=== PATIENT | male | born 1950 | race Caucasian/White ===

== ENCOUNTER → 2024-05-22 10:55 | Outpatient (BNVA) | payer MEDICARE, OTHER, SELFPAY | PROVIDERS: PCP Nurse Practitioner Family; Referring Provider Psychiatry & Neurology Neurology; Visit Provider Internal Medicine Cardiovascular Disease | DX: R07.9 Chest pain, unspecified (principal); I49.8 Other specified cardiac arrhythmias | CPT/HCPCS: 93005; 99204 ==

== ENCOUNTER 2024-05-27 07:40 | Outpatient (CLI) | payer MEDICARE, OTHER, SELFPAY ==
--- NOTE | 2024-05-27 08:00 | CTR_ITS ---
PROCEDURE INFORMATION: Exam: CTA Head Without And With Contrast, Arteriography Exam date and time: 05/27/2024 8:41 AM Age: 73 years old Clinical indication: Convulsions / seizures; Patient HX: Neck cramping and headaches, altered awareness since feb 2023. HX of colon cancer; Additional info: R56.9 - unspecified convulsions TECHNIQUE: Imaging protocol: Computed tomographic angiography of the head without and with contrast. Exam focused on the arteries. 3D rendering (Not supervised by radiologist): MIP and/or 3D reconstructed images were created by the technologist. Radiation optimization: All CT scans at this facility use at least one of these dose optimization techniques: automated exposure control; mA and/or kV adjustment per patient size (includes targeted exams where dose is matched to clinical indication); or iterative reconstruction. Contrast material: OMNI 350; Contrast volume: 100 ml; Contrast route: INTRAVENOUS (IV); COMPARISON: No relevant prior studies available. RADIATION DOSE METRICS: Total DLP (mGy-cm): 1289.83 FINDINGS: Unenhanced images through the brain demonstrate no acute intracranial hemorrhage or localized mass effect. No subdural collections are seen. No obvious pathologic intracranial enhancement. Internal carotid: Bilateral carotid siphon atherosclerotic calcifications without evidence of severe stenosis. Anterior cerebral: Proximal anterior cerebral arteries bilaterally are patent without evidence of flow-limiting stenosis. There is a patent anterior communicating artery. Middle cerebral: Bilateral proximal middle cerebral arteries are patent without flow-limiting stenosis or occlusion. There is grossly symmetric appearance of branch vessels within the sylvian fissures. Posterior cerebral: Bilateral proximal posterior cerebral arteries are patent without flow-limiting stenosis or occlusion. . Vertebrobasilar: Basilar artery is patent without flow-limiting stenosis. Intracranial segments of both vertebral arteries are patent without flow-limiting stenosis. Venous sinuses: Major dural venous sinuses are patent without evidence of thrombus. PROCEDURE INFORMATION: Exam: CTA Neck With Contrast Exam date and time: 05/27/2024 8:41 AM Age: 73 years old Clinical indication: Convulsions / seizures; Patient HX: Neck cramping and headaches, altered awareness since feb 2023. HX of colon cancer; Additional info: R56.9 - unspecified convulsions TECHNIQUE: Imaging protocol: Computed tomographic angiography of the neck with contrast. Exam focused on the cervical segments of the vasculature. 3D rendering (Not supervised by radiologist): MIP and/or 3D reconstructed images were created by the technologist. Radiation optimization: All CT scans at this facility use at least one of these dose optimization techniques: automated exposure control; mA and/or kV adjustment per patient size (includes targeted exams where dose is matched to clinical indication); or iterative reconstruction. Contrast material: OMNI 350; Contrast volume: 100 ml; Contrast route: INTRAVENOUS (IV); COMPARISON: No relevant prior studies available. RADIATION DOSE METRICS: Total DLP (mGy-cm): 1289.83 FINDINGS: Aortic arch: No significant stenosis of the great vessels at their origins from the aortic arch. Right carotid: Right CCA is normal caliber. At the origin of the right ICA, there is calcified plaque producing less than 50% stenosis. Just distal to the calcified plaque, there is noncalcified plaque producing short-segment 50% stenosis. Left carotid: Left common, internal, and external carotid arteries in the neck are patent without flow-limiting stenosis or evidence of dissection. Mild atherosclerosis associated with less than 50% stenoses of the left CCA and left ICA. Left vertebral: Left vertebral artery is patent without flow-limiting stenosis or dissection. Right vertebral: Right vertebral artery is patent without evidence of flow-limiting stenosis or dissection. There is [id number] stenosis near the origin of the right vertebral artery. Soft tissues: No acute abnormality of the neck soft tissues is seen. Images through the upper chest show evidence of chronic lung disease. Bones/joints: Chronic multilevel cervical degenerative disc disease and facet DJD. There is minimal degenerative anterolisthesis at the C3-C4, C4-C5, and C5-C6 levels CT/CT angio headneck* [id number] IMPRESSION: 1. No acute intracranial hemorrhage or mass effect identified. 2. CTA head demonstrates no intracranial large vessel occlusion or flow-limiting stenosis. IMPRESSION: CTA neck shows relatively mild atherosclerotic disease with no occlusion or severe stenosis of the extracranial cerebrovascular circulation. REFERENCES: NASCET CRITERIA. The degree of stenosis in the cervical segment of the internal carotid artery is based on NASCET criteria. Normal is no stenosis. Mild is less than 50% stenosis. Moderate is 50-69% stenosis. Severe is 70% to 99% stenosis. Total occlusion is no detectable patent lumen.
[2024-05-27 08:39] LABS: Blood Urea Nitrogen 10 mg/dL (8-23)
[2024-05-27] MEDS: iohexol 350 mg/mL 500 mL Btl (per mL) IV (08:59)
== END 2024-05-27 07:41 | disposition home or self-care (01) ==
PROVIDERS: PCP Family Medicine; Visit Provider Psychiatry & Neurology Neurology
DX: R56.9 Unspecified convulsions (principal); M50.20 Other cervical disc displacement, unspecified cervical region; Z85.038 Personal history of other malignant neoplasm of large intestine
CPT/HCPCS: 70496; 70498; 82565; 84520

== ENCOUNTER 2024-05-30 12:51 | Outpatient (CLI) | payer MEDICARE, OTHER, SELFPAY ==
--- NOTE | 2024-05-30 13:30 | USCV_ITS ---
Kalin Alberto Age: 73 Gender: M : 1950 Exam Date: 05/30/2024 13:22 Ordering Phys: Emelyn Aggarwal MD ([email or web address]) Technologist: TESS Exam Location: [facility] [place] Indication: TIA Risk Factors: Previous Vascular Surgery: Right Brachial BP: / Left Brachial BP: / Right Left Velocity (cm/s) Spectral Plaque Velocity (cm/s) Spectral Plaque Syst/Diast Broadening Syst/Diast Broadening 93.20/ 13.80 Prox CCA 129.40/ 20.40 95.00/ 19.20 Mid CCA 106.20/ 23.00 110.10/21.00 Distal CCA 87.50 / 20.20 74.10/ 14.20 Prox ICA 77.00 / 15.60 127.40/32.70 Mid ICA 82.90 / 19.60 92.40/ 16.80 Distal ICA 90.80 / 25.50 87.80 ECA 140.20 1.20 ICA/CCA 1.00 Antegrade Vertebral Antegrade 75.40/ 16.80 cm/s 96.20/ 20.70 cm/s Tri Subclavian Tri 87.10 147.6 0 FINDINGS Comparison: none available. No significant elevation of systolic or diastolic velocities. Waveforms are normal. Mild diffuse calcified plaque in the bifurcations. Antegrade vertebral arteries. CONCLUSIONS Bilateral ICA stenosis less than 50%. Dr. Rani Phillips DO (Electronically Signed) Final Date: 30 May 2024 14:50 S
== END 2024-05-30 12:52 | disposition home or self-care (01) ==
LOC: RAD 12:52
PROVIDERS: PCP Family Medicine; Visit Provider Internal Medicine Cardiovascular Disease
DX: I65.23 Occlusion and stenosis of bilateral carotid arteries (principal)
CPT/HCPCS: 93880

== ENCOUNTER 2024-05-31 14:49 | Inpatient (IN) | payer MEDICARE, OTHER, SELFPAY ==
[2024-05-31] VITALS (8 sets, daily range): BP systolic 139–171; BP diastolic 68–90; PULSE 87–104; RESP 16–25; TEMP 36.6–37.1; O2SAT 91–96; BMI 34.7
--- NOTE | 2024-05-31 14:52 | ECG_ITS ---
[facility] Test Date: 2024-05-31 Pat Name: Kalin Alberto Department: Room: Gender: Male Pourer Buggy Ladle: : 1950 Requested By: Anny Ingram Order Number: [id number] Lyndsey MD: John Carrion M.D. Measurements Intervals [place] Rate: 99 P: 85 [place]: 154 QRS: 55 QRSD: 85 T: 72 QT: 331 QTc: 426 Interpretive Statements SINUS RHYTHM NONSPECIFIC T-WAVE ABNORMALITY Compared to ECG 05/22/2024 11:02:51 T-wave abnormality now present Sinus arrhythmia no longer present ST (T wave) deviation no longer present Electronically Signed On 05-31-2024 18:28:00 FOREST RANGER by John Carrion M.D. [id number]
--- NOTE | 2024-05-31 15:00 | XRR_ITS ---
PROCEDURE INFORMATION: Exam: XR Chest Exam date and time: 05/31/2024 3:13 PM Age: 73 years old Clinical indication: Pain; Other: Unspecified; Additional info: Cp TECHNIQUE: Imaging protocol: Radiologic exam of the chest. Views: 1 view. COMPARISON: CT angio headneck* [id number] 05/27/2024 8:41 AM FINDINGS: Tubes, catheters and devices: None. Lungs: Evidence for lung calcified granulomas in the bilateral chest. Bilateral pulmonary linear interstitial opacities identified within lower lungs. The pulmonary opacities are most prominent within the lower right lung. Pleural spaces: No pleural effusion. No pneumothorax. Heart/Mediastinum: Mediastinum and sreekanth appear unremarkable. Bones/joints: Diffusely decreased bone density. Generalized bony degenerative changes. Soft tissues: This study is limited by patient's body habitus. XR/XR chest 1V portable [id number] IMPRESSION: Pulmonary atelectasis or acute infiltrates within lower chest bilaterally.
[2024-05-31 15:15] LABS: Basophils # 0.1 10^3/uL (0.0-0.1); Basophils % 0.5 %; Eosinophils # 0.1 10^3/uL (0.0-0.8); Eosinophils % 0.7 %; Hematocrit 47.6 % (37-53); Lymphocytes # 1.6 10^3/uL (0.8-4.8); Lymphocytes % 17.2 %; Mean Corpuscular HGB Conc 33.6 g/dL (30-55); Mean Corpuscular Hemoglobin 30.9 pg (27-33); Mean Corpuscular Volume 92.1 fl (82-101); Mean Platelet Volume 9.3 fL (7.4-10.4); Monocytes # 0.7 10^3/uL (0.2-0.9); Monocytes % 7.3 %; Neutrophils # 7.03 10^3/uL (1.8-7.7); Nucleated Red Blood Cells % 0 %; Platelet Count 241 10^3/cmm (157-399); Red Blood Count 5.17 10^6/uL (3.85-5.65); Red Cell Distribution Width 12.6 % (12.1-15.1); White Blood Count 9.51 10^3/uL (3.29-11.43)
--- NOTE | 2024-05-31 15:26 | ED_ITS ---
HPI - Chest Pain 2 General: Chief Complaint: Chest Pain Stated Complaint: chest pain Time Seen by Provider: 05/31/24 15:03 History of Present Illness: 73-year-old male complaining of chest pa in. He has a known history of coronary disease. Pain began around 230 this morning he did take single baby aspirin and then felt like the pain resolved. He is scheduled for a stress test on June 18. Patient states he has intermittently had chest pain for about the last 6 months has been Cumber possibly more intense he noticed it is worse with activity better with rest. He is also noticed a little more problem some when he coughs. He does get relief with resting and also notices had relief with aspirin this morning's episode that woke him up around 230 from sleep lasted about 30 minutes and then resolved. He has noticed that with activity it will exacerbate or bring on symptoms and with rest they are help to resolve in the past. Associated symptoms: Deny abdominal pain, dyspnea or fever(s) Related Data Home Medications Medication Instructions Recorded Confirmed fluticasone furoate 100 1 inh inhalation DAILY 05/14/24 05/31/24 mcg-vilanterol 25 mcg/dose inhalation powder (Breo Ellipta) furosemide 40 mg tablet 40 mg PO QAM 05/14/24 05/31/24 gabapentin 300 mg capsule 300 mg PO BID 05/14/24 05/31/24 ipratropium 0.5 mg-albuterol 3 mg 3 ml inhalation Q6H PRN Shortness 05/14/24 05/31/24 (2.5 mg base)/3 mL nebulization Of Breath soln potassium chloride 10 mEq 10 meq PO DAILY 05/14/24 05/31/24 capsule,extended release albuterol sulfate 90 mcg/actuation 2 puff inhalation Q6H PRN 05/22/24 05/31/24 aerosol inhaler Shortness Of Breath Allergies Allergy/AdvReac Type Severity Reaction Status Date / Time No Known Allergies Allergy Verified 05/31/24 14:57 Review of Systems 2 Const: Denies: fever(s) or chills Card: Reports: chest pain Resp: Denies: dyspnea GI: Denies: abdominal pain : Denies: dysuria, urinary frequency or urinary urgency Musc: Denies: neck pain or back pain Skin/Breast: Denies: rash PFSH ED 2 PFSH: Surgical History H/O shoulder surgery History of colon surgery H/O angioplasty History of appendectomy Family History Brother Diabetes Cancer Mother Stroke Denies family history of CAD (coronary artery disease) Social History Smoking and tobacco/nicotine status: current every day tobacco/nicotine user cigarettes Packs smoked per day: 0.5 Years cigarettes smoked: 45 Alcohol intake: never Substance/Drug Use: never Physical Exam 2 Const: GENERAL APPEARANCE: cooperative ORIENTATION/CONSCIOUSNESS: Yes awake, Yes oriented to person, Yes oriented to place and Yes oriented to time HENMT: COMMON NORMALS: normocephalic, atraumatic and hearing grossly normal bilaterally HEAD & SCALP: normocephalic and atraumatic Resp: COMMON NORMALS: normal respiratory effort, No retractions, No use of accessory muscles and clear to auscultation bilaterally AUSCULTATION: clear to auscultation bilaterally Cardio: COMMON NORMALS: regular rate, regular rhythm and No murmurs present (Cardio) RATE: regular rate RHYTHM: regular rhythm GI: COMMON NORMALS: Soft to palpation and No hepatosplenomegaly present A USCULTATION: Yes normoactive bowel sounds PALPATION: Yes Soft to palpation, No Tenderness to palpation present (GI), No Guarding due to palpation present (GI) and Yes No hepatosplenomegaly present Extremity: COMMON NORMALS: normal to inspection, capillary refill normal, no clubbing, cyanosis or edema, no calf tenderness and no pedal edema Neuro: SENSORIUM/ORIENTATION: Yes oriented to person, Yes oriented to place and Yes oriented to time Skin: COMMON NORMALS: no rashes or lesions noted GENERAL SKIN EXAM: no rashes or lesions noted Course 2 Vital Signs: Vital signs: Vital Signs Temperature 98.4 F 06/01/24 03:56 Pulse Rate 77 06/01/24 05:46 Respiratory Rate 22 H 06/01/24 03:56 Blood Pressure 159/93 06/01/24 03:56 Pulse Oximetry 94 06/01/24 03:56 Oxygen Delivery Me thod Room Air 06/01/24 03:56 MDM - Chest Pain Medical Decision Making EKG does not show acute changes nonspecific ST changes otherwise sinus rhythm with a rate of 90 WA interval 154 small Q waves noted in 2 3 and aVF nondiagnostic Medical Records I reviewed the patient's medical records. Lab Data I reviewed the patient's lab results. 06/01/24 03:35 06/01/24 03:35 Laboratory Results WBC 9.51 10^3/uL (3.29-11.43) 05/31/24 15:09 RBC 5.17 10^6/uL (3.85-5.65) 05/31/24 15:09 Hgb 16.00 g/dL (11.27-16.99) 05/31/24 15:09 Hct 47.6 % (37-53) 05/31/24 15:09 MCV 92.1 fl (82-101) 05/31/24 15:09 MCH 30.9 pg (27-33) 05/31/24 15:09 MCHC 33.6 g/dL (30-55) 05/31/24 15:09 RDW 12.6 % (12.1-15.1) 05/31/24 15:09 Plt Count 241 10^3/cmm (157-399) 05/31/24 15:09 MPV 9.3 fL (7.4-10.4) 05/31/24 15:09 Neut % (Auto) 74.0 % 05/31/24 15:09 Lymph % (Auto) 17.2 % 05/31/24 15:09 Gage % (Auto) 7.3 % 05/31/24 15:09 Eos % (Auto) 0.7 % 05/31/24 15:09 Baso % (Auto) 0.5 % 05/31/24 15:09 Neut # (Auto) 7.03 10^3/uL (1.8-7.7) 05/31/24 15:09 Lymph # (Auto) 1.6 10^3/uL (0.8-4.8) 05/31/24 15:09 Gage # (Auto) 0.7 10^3/uL (0.2-0.9) 05/31/24 15:09 Eos # (Auto) 0.1 10^3/uL (0.0-0.8) 05/31/24 15:09 Baso # (Auto) 0.1 10^3/uL (0.0-0.1) 05/31/24 15:09 Nucleated RBC % (auto) 0 % 05/31/24 15:09 Nucleated RBCs # 0.0 /100WBC 05/31/24 15:09 Specimen Type Arterial 05/31/24 17:43 Sample Site Radial, right 05/31/24 17:43 ABG pH 7.42 (7.35-7.45) 05/31/24 17:43 ABG pCO2 40.5 mmHg (35-45) 05/31/24 17:43 ABG pO2 71.2 mmHg (80.0-100.0) L 05/31/24 17:43 ABG PO2/FiO2 Ratio 339 05/31/24 17:43 ABG HCO3 26.5 mmol/L (22-26) H 05/31/24 17:43 ABG Base Excess 1.9 mmol/L (-2.0-2.0) 05/31/24 17:43 Cricket Test Pos 05/31/24 17:43 Hematocrit 48.6 % (42-52) 05/31/24 17:43 O2 Delivery Device Room air 05/31/24 17:43 FiO2 21.0 % 05/31/24 17:43 Hardwood Floor Installer ID [place] 05/31/24 17:43 Sodium 137 mmol/L (136-145) 05/31/24 15:09 Potassium 4.0 mmol/L (3.5-5.1) 05/31/24 15:09 Chloride 101 mmol/L (98-107) 05/31/24 15:09 Carbon Dioxide 24 mmol/L (22-29) 05/31/24 15:09 Anion Gap 16.0 (5-19) 05/31/24 15:09 BUN 14 mg/dL (8-23) 05/31/24 15:09 Creatinine 1.3 mg/dL (0.7-1.2) H 05/31/24 15:09 GFR Calculation Not Reportable 05/31/24 15:09 Glucose 131 mg/dL (65-115) H 05/31/24 15:09 Estimat Average Glucose 131 05/31/24 15:09 Hemoglobin A1c 6.2 % (4.0-6.0) H 05/31/24 15:09 Calculated Osmolality 286 mOsm/kg (285-295) 05/31/24 15:09 Calcium 9.0 mg/dL (8.5-10.5) 05/31/24 15:09 Total Bilirubin 0.5 mg/dL (0.15-1.2) 05/31/24 15:09 AST 22 U/L (0-40) 05/31/24 15:09 ALT 24 U/L (0-41) 05/31/24 15:09 Alkaline Phosphatase 80 U/L (40-130) 05/31/24 15:09 Troponin T Baseline 15 ng/L (0-15) 05/31/24 15:09 Troponin T 120 Minute 15.84 ng/L (0-15) H 05/31/24 17:40 Delta Troponin T 0.84 ABS# (0-10) 05/31/24 17:40 NT-Pro-B Natriuret Pep 45 pg/mL (0-125) 05/31/24 17:40 Total Protein 6.6 g/dL (6.6-8.7) 05/31/24 15:09 Albumin 4.4 g/dL (3.5-5.2) 05/31/24 15:09 Globulin 2.2 g/dL (1.3-4.6) 05/31/24 15:09 Triglycerides 353 mg/dL (0-150) H 05/31/24 15:09 Cholesterol 228 mg/dL (0-200) H 05/31/24 15:09 LDL Cholesterol, Calc 124 mg/dL (50-129) 05/31/24 15:09 HDL Cholesterol 33 mg/dL (60-100) L 05/31/24 15:09 LDL/HDL Ratio 3.76 RATIO (0.00-3.22) H 05/31/24 15:09 Cholesterol/HDL Ratio 6.91 mg/dL (1.0-5.00) H 05/31/24 15:09 Lipase 25 U/L (13-60) 05/31/24 15:09 TSH 3.36 uIU/mL (0.27-4.20) 05/31/24 15:09 All radiology interpretation(s) finalized by discharge Discharge Plan Discharge Patient Disposition: Admitted As Inpatient Admit Provider: Trav Cobos Clinical Impression: Unstable angina pectoris Condition: Stable Coding Level of Care Code ED [employer] Molder for Maura Ponce
[2024-05-31 15:37] LABS: Alanine Aminotransferase 24 U/L (0-41); Albumin Level 4.4 g/dL (3.5-5.2); Alkaline Phosphatase 80 U/L (40-130); Aspartate Amino Transferase 22 U/L (0-40); Blood Urea Nitrogen 14 mg/dL (8-23); Carbon Dioxide 24 mmol/L (22-29); Chloride 101 mmol/L (98-107); Creatinine Clr Calc Pharmacy 58.9883; Globulin 2.2 g/dL (1.3-4.6); Glucose 131 mg/dL (65-115); Lipase 25 U/L (13-60); Osmolality Calculated 286 mOsm/kg (285-295); Sodium 137 mmol/L (136-145); Total Bilirubin 0.5 mg/dL (0.15-1.2); Total Protein 6.6 g/dL (6.6-8.7)
[2024-05-31 15:40] LABS: Troponin(5th) Baseline 15 ng/L (0-15)
--- NOTE | 2024-05-31 16:51 | ECG_ITS ---
[facility]: [facility]24-[facility]31 Pat Name: Kalin Alberto Department: Room: Gender: Male Preparation Room Manager: : 1950 Requested By: Anny Ingram Order Number: [id number] Lyndsey MD: John Carrion M.D. Measurements Intervals [place] Rate: 85 P: 81 [place]: 152 QRS: 56 QRSD: 85 T: 60 QT: 354 QTc: 422 Interpretive Statements SINUS RHYTHM NONSPECIFIC T-WAVE ABNORMALITY Compared to ECG 05/31/2024 14:52:56 No significant changes Electronically Signed On 05-31-2024 18:37:10 ASSISTANT CLINICAL NURSE MANAGER by John Carrion M.D. [id number]
--- NOTE | 2024-05-31 17:44 | P.HP_ITS ---
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 Patient reports a history of chest pain recently, he saw cardiology and was supposed to have an outpatient stress test June 18. Continue to have complaints of intermittent chest pain, left sided, substernal, stabbing-like pain, today he woke up early in the morning due to severe substernal chest pain lasting about 30 minutes. Does report the severity and the frequency of the chest pain is increasing, increasing with activity. Does report smoking cigarettes, no diagnosis of COPD Review of Systems 2 Card: Denies: chest pain Resp: Reports: dyspnea Medications/Allergies Home Medications Medication Instructions Recorded Confirmed Last Taken Type fluticasone furoate 100 1 inh inhalation DAILY 05/14/24 05/31/24 05/31/24 History mcg-vilanterol 25 mcg/dose inhalation powder (Breo Ellipta) furosemide 40 mg tablet 40 mg PO QAM 05/14/24 05/31/24 05/31/24 History gabapentin 300 mg capsule 300 mg PO BID 05/14/24 05/31/24 05/31/24 History ipratropium 0.5 mg-albuterol 3 mg 3 ml inhalation Q6H PRN Shortness 05/14/24 05/31/24 Unknown History (2.5 mg base)/3 mL nebulization Of Breath soln potassium chloride 10 mEq 10 meq PO DAILY 05/14/24 05/31/24 05/31/24 History capsule,extended release albuterol sulfate 90 mcg/actuation 2 puff inhalation Q6H PRN 05/22/24 05/31/24 Unknown History aerosol inhaler Shortness Of Breath Allergies Allergy/AdvReac Type Severity Reaction Status Date / Time No Known Allergies Allergy Verified 05/31/24 14:57 PFSH Acute 2 PFSH: Surgical History H/O shoulder surgery History of colon surgery H/O angioplasty History of appendectomy Family History Brother Diabetes Cancer Mother Stroke Denies family history of CAD (coronary artery disease) Social History Smoking and tobacco/nicotine status: current every day tobacco/nicotine user cigarettes Packs smoked per day: 0.5 Years cigarettes smoked: 45 Alcohol intake: never Substance/Drug Use: never Vitals/I&O/Wt Last Vital Signs Temp 98.0 F 05/31/24 14:57 Pulse 98 05/31/24 14:57 Resp 18 05/31/24 14:57 BP 171/84 05/31/24 14:57 Pulse Ox 95 05/31/24 14:57 O2 Del Method Room Air 05/31/24 14:57 05/31/24 05/31/24 05/31/24 06:59 14:59 22:59 Intake Total 0 / 0 Balance 0 / 0 Weight last 48 hrs Weight 103.419 kg Physical Exam 2 Const: COMMON NORMALS: no acute distress and patient oriented x3 Neck/C-Spine: OTHER: Mallampti score 4 Resp: COMMON NORMALS: normal respiratory effort, No retractions, No use of accessory muscles and clear to auscultation bilaterally AUSCULTATION: clear to auscultation bilaterally Cardio: COMMON NORMALS: no JVD, regular rate, regular rhythm, S1 normal heart sound present and S2 normal heart sound present RATE: regular rate RHYTHM: regular rhythm HEART SOUNDS: S1 normal heart sound present and S2 normal heart sound present GI: COMMON NORMALS: Normal to inspection, nondistended, normoactive bowel sounds present, Soft to palpation and non-tender Extremity: COMMON NORMALS: no calf tenderness and no pedal edema Neuro: COMMON NORMALS: patient oriented x3, CN's II-XII intact bilaterally and moves all extremities Psych: COMMON NORMALS: mental status grossly normal Data 05/31/24 15:09 05/31/24 15:09 A&P Assessment and plan (1) Chest pain: Plan Chest pain ? Plan ? Serial EKGs, serial troponins, telemetry monitoring ? Cardiac echo ? Aspirin, statin, Coreg ? Monitor for recurrent chest pain ? Nitro as needed for chest pain ? Does report a history in 2019 in which after a prolonged right shoulder surgery, and postop recovery he was kept on his back for a prolonged period of time and had an episode of respiratory failure, was intubated, had cardiac arrest, he tells me that they told him it was because he was on his back for a long period of time. at bedside does tell me that he has a history of snoring, he has no diagnosis of sleep apnea, but he did try a CPAP machine at a point. He tells me he cannot sleep on his back due to claustrophobia, tells me he cannot do an MRI because of this, difficulty sleeping, he does smoke, no diagnosis of COPD. Will check a ABG # This might complicated doing a coronary angiography if needed # Full code # Lovenox for DVT prophylaxis Attestations 2 Medical Necessity Statement*: Patient requires hospitalization for chest pain, inpatient, greater than 2 midnights and High MDM includes number and complexity of problems actively addressed during encounter, amount and/or complexity of data reviewed/ordered and described risk of complication, morbidity or mortality of management as documented Diagnoses Chest pain R07.9
[2024-05-31 17:55] LABS: ABG PCO2 40.5 mmHg (35-45); ABG PH Result 7.42 (7.35-7.45); Arterial Blood Gas Hematocrit 48.6 % (42-52); Base Excess ABG 1.9 mmol/L (-2.0-2.0); Blood Gas Allen Test Pos; Blood Gas Operator Identificat WALCI; Blood Gas Sample Site Radial, right; Blood Gas Sample Type Arterial; HCO3 ABG 26.5 mmol/L (22-26); Oxygen Device ROOM AIR; PO2 ABG 71.2 mmHg (80.0-100.0); PO2 FiO2 Ratio Arterial Blood 339
[2024-05-31 18:02] LABS: Troponin 5 2HR 15.84 ng/L (0-15); Troponin 5 2HR Delta 0.84 ABS# (0-10)
--- NOTE | 2024-05-31 18:08 | PC.NURSE ---
Patient transferred to CSU from ED via a wheelchair and walked to bed in the room. Patients and son are at bedside. Arrived at 1805.
[2024-05-31 18:25] LABS: NT Pro B Type Natriuretic Pept 45 pg/mL (0-125)
[2024-05-31 18:36] LABS: Chol HDL Ratio 6.91 mg/dL (1.0-5.00); Cholesterol 228 mg/dL (0-200); HDL Cholesterol 33 mg/dL (60-100); LDL Cholesterol Calculated 124 mg/dL (50-129); LDL HDL Ratio 3.76 RATIO (0.00-3.22); Thyroid Stimulating Hormone 3.36 uIU/mL (0.27-4.20); Triglycerides 353 mg/dL (0-150)
[2024-05-31] MEDS: pantoprazole 40 mg SDV IVP (18:39)
[2024-05-31] MEDS: gabapentin 300 mg Capsule PO (18:39)
[2024-05-31] MEDS: carvedilol 3.125 mg Tablet PO (18:39)
[2024-05-31] MEDS: aspirin 81 mg EC Tablet PO (18:39)
[2024-05-31] MEDS: enoxaparin 40 mg/0.4 mL Syringe SUBCUT (18:40)
[2024-05-31] MEDS: atorvastatin 40 mg Tablet PO (20:16)
--- NOTE | 2024-05-31 20:56 | ECG_ITS ---
[facility] Date: 2024-05-31 Pat Name: Kalin Alberto Department: Room: 106 Gender: Male Pcmh Specialist: : 1950 Requested By: Anny Ingram Order Number: [id number] Reading MD: John Carrion M.D. Measurements Intervals [place] Rate: 86 P: 76 [place]: 156 QRS: 52 QRSD: 88 T: 73 QT: 343 QTc: 412 Interpretive Statements SINUS RHYTHM NONSPECIFIC T-WAVE ABNORMALITY Compared to ECG 05/31/2024 16:51:12 No significant changes Electronically Signed On 06-02-2024 20:17:57 CHIEF OF PARTY by John Carrino M.D. [email or web address]
[2024-05-31 21:16] LABS: Troponin 5 6HR 15.82 ng/L (0-15); Troponin 5 6HR Delta 0.82 ng/L (0-12)
[2024-05-31 22:28] LABS: Estmated Average Glucose 131; Hemoglobin A1C 6.2 % (4.0-6.0)
[2024-06-01] VITALS (58 sets, daily range): BP systolic 98–194; BP diastolic 54–98; PULSE 71–107; RESP 3–38; TEMP 36.9–37.1; O2SAT 90–97
[2024-06-01 03:54] LABS: Basophils # 0.1 10^3/uL (0.0-0.1); Basophils % 0.7 %; Eosinophils # 0.1 10^3/uL (0.0-0.8); Eosinophils % 1.3 %; Hematocrit 47.6 % (37-53); Lymphocytes # 1.4 10^3/uL (0.8-4.8); Lymphocytes % 20.2 %; Mean Corpuscular HGB Conc 32.6 g/dL (30-55); Mean Corpuscular Hemoglobin 30.3 pg (27-33); Mean Corpuscular Volume 93.2 fl (82-101); Mean Platelet Volume 9.3 fL (7.4-10.4); Monocytes # 0.7 10^3/uL (0.2-0.9); Monocytes % 10.5 %; Neutrophils # 4.52 10^3/uL (1.8-7.7); Neutrophils % 66.9 %; Nucleated Red Blood Cells % 0 %; Platelet Count 235 10^3/cmm (157-399); Red Blood Count 5.11 10^6/uL (3.85-5.65); Red Cell Distribution Width 12.6 % (12.1-15.1); White Blood Count 6.77 10^3/uL (3.29-11.43)
[2024-06-01] MEDS: acetaminophen 325 mg Tablet 650 MG PO (04:00)
[2024-06-01 04:19] LABS: Anion Gap 11.3 (5-19); Blood Urea Nitrogen 14 mg/dL (8-23); Calcium 9.3 mg/dL (8.5-10.5); Carbon Dioxide 30 mmol/L (22-29); Chloride 104 mmol/L (98-107); Creatinine Clr Calc Pharmacy 77.8667; Glucose 109 mg/dL (65-115); Osmolality Calculated 293 mOsm/kg (285-295); Potassium 4.3 mmol/L (3.5-5.1); Sodium 141 mmol/L (136-145)
--- NOTE | 2024-06-01 07:29 | P.CONIM_ITS ---
Providers/Reason For Consult 2 Consulting Physician/Specialty*: John Carrion MD/ Cardiology Reason for Consult*: Unstable angina Requesting Physician: Dr Lopez Attending Physician: Trav Cobos MD Primary Care Provider: Pete Pandey History of Present Illness History of Present Illness Kalin Alberto is a 73 year old male with past medical history of hypertension, angioplasty in 1992, seizures who presented to hospital with on and off severe substernal chest discomfort. He was recently seen in cardiology office for chest discomfort and stress test was pending. However he says he has been having on and off chest discomfort. Previous night woke up in the middle of the night with severe substernal pain radiating to the back. Lasted for about 30 minutes. EKG shows non specific ST T wave changes. Troponins have not trended up significantly. Review of Systems 2 Card: Reports: chest pain Resp: Reports: dyspnea Medications/Allergies Home Medications Medication Instructions Recorded Confirmed Last Taken Type fluticasone furoate 100 1 inh inhalation DAILY 05/14/24 05/31/24 05/31/24 History mcg-vilanterol 25 mcg/dose inhalation powder (Breo Ellipta) furosemide 40 mg tablet 40 mg PO QAM 05/14/24 05/31/24 05/31/24 History gabapentin 300 mg capsule 300 mg PO BID 05/14/24 05/31/24 05/31/24 History ipratropium 0.5 mg-albuterol 3 mg 3 ml inhalation Q6H PRN Shortness 05/14/24 05/31/24 Unknown History (2.5 mg base)/3 mL nebulization Of Breath soln potassium chloride 10 mEq 10 meq PO DAILY 05/14/24 05/31/24 05/31/24 History capsule,extended release albuterol sulfate 90 mcg/actuation 2 puff inhalation Q6H PRN 05/22/24 05/31/24 Unknown History aerosol inhaler Shortness Of Breath Allergies Allergy/AdvReac Type Severity Reaction Status Date / Time No Known Allergies Allergy Verified 05/31/24 14:57 Current Medications Generic Name Dose Route Start Last Admin Trade Name Freq PRN Reason Stop Dose Admin Acetaminophen 650 mg 05/31/24 18:07 06/01/24 04:00 Acetaminophen 325 Mg Tablet PO 650 mg Q6H PRN Administration Mild/Mod Pain Or Temp >/= 101 Aspirin 81 mg 05/31/24 18:07 05/31/24 18:39 Aspirin 81 Mg Ec Tablet PO 81 mg DAILY PEEWEE Administration Atorvastatin Calcium 40 mg 05/31/24 21:00 05/31/24 20:16 Atorvastatin 40 Mg Tablet PO 40 mg BEDTIME PEEWEE Administration Carvedilol 3.125 mg 05/31/24 18:07 05/31/24 18:39 Carvedilol 3.125 Mg Tablet PO 3.125 mg BID PEEWEE Administration Enoxaparin Sodium 40 mg 05/31/24 18:07 05/31/24 18:40 Enoxaparin 40 Mg/0.4 Ml Syringe SUBCUT 40 mg Q24H PEEWEE Administration Gabapentin 300 mg 05/31/24 18:07 05/31/24 18:39 Gabapentin 300 Mg Capsule PO 300 mg BID PEEWEE Administration Pantoprazole Sodium 40 mg 05/31/24 18:07 05/31/24 18:39 Pantoprazole 40 Mg Sdv IVP 40 mg Q24H PEEWEE Administration PFSH Acute 2 PFSH: Surgical History H/O shoulder surgery History of colon surgery H/O angioplasty History of appendectomy Family History Brother Diabetes Cancer Mother Stroke Denies family history of CAD (coronary artery disease) Social History Smoking and tobacco/nicotine status: current every day tobacco/nicotine user cigarettes Packs smoked per day: 0.5 Years cigarettes smoked: 45 Alcohol intake: never Substance/Drug Use: never Vitals/I&O/Wt Last Vital Signs Temp 98.4 F 06/01/24 03:56 Pulse 77 06/01/24 05:46 Resp 22 H 06/01/24 03:56 BP 159/93 06/01/24 03:56 Pulse Ox 94 06/01/24 03:56 O2 Del Method Room Air 06/01/24 03:56 05/31/24 06/01/24 06/01/24 22:59 06:59 14:59 Intake Total 320 / 320 Output Total 0 / 0 500 / 500 Balance 320 / 320 -500 / -180 Weight last 48 hrs Weight 235 lb Weight 228 lb Weight 228 lb Physical Exam 2 Narrative: GENERAL: Patient is alert, awake and oriented x3. [] NECK: No jugular vein distension. [] HEENT: No cyanosis. No icterus. No pallor. [] HEART: Regular S1 and S2. No murmur, rub or gallop. [] LUNGS: Clear to auscultate bilaterally. [] CENTRAL NERVOUS SYSTEM: Grossly nonfocal. [] EXTREMITIES: Lower extremities with 1+ edema bilaterally. Data 06/01/24 03:35 06/01/24 03:35 A&P Assessment and plan (1) Unstable angina pectoris: (2) Seizure: Plan Patient has presented with unstable angina. Symptoms are typical and has multiple risk factors. Will proceed with coronary angiogram with possible PCI. Risks and benefits of the procedure were discussed in detail. He understands these and wants to proceed. Continue aspirin. Echocardiogram ordered. Thank you for involving us with care of this patient. We will continue to follow. Please call with questions. Consult Attestations 2 Medical Necessity Statement: Care expected to cross 2 midnights. Coding Level of Care Code Acute Code for Chg Fwd Diagnoses Unstable angina pectoris I20.0 Seizure R56.9
[2024-06-01] MEDS: gabapentin 300 mg Capsule PO ×2 (08:11→18:23)
[2024-06-01] MEDS: aspirin 81 mg EC Tablet PO (08:11)
[2024-06-01] MEDS: carvedilol 3.125 mg Tablet PO ×2 (08:11→18:23)
--- NOTE | 2024-06-01 09:43 | W.PM.OPSUD ---
Surgery/Procedure H&P Update DATE OF PROCEDURE: June 01, 2024 DATE H&P PERFORMED: 06/01/24 H&P UPDATE INFORMATION: I have reviewed H&P completed within last 30 days, I have examined patient prior to procedure and No changes to prior documentation PREOP DIAGNOSIS: Worsening angina/ Unstable angina PRIMARY INDICATION FOR PROCEDURE: Worsening angina/ Unstable angina PLANNED PROCEDURE: Left heart cath with possible percutaneous coronary intervention PATIENT REASSESSED PRIOR TO SEDATION, WITH NO CHANGE NOTED: Yes PHYSICAL EXAM: alert, oriented x 3, clear to auscultation bilaterally and regular rate & rhythm AIRWAY EVAL/ANESTHESIA PLAN: normal airway, ASA IV, Local Anesthesia, Risks, benefits & alternatives of sedation and/or procedure discussed and Patient agrees to continue as planned ADDITIONAL INFORMATION: Moderate sedation
--- NOTE | 2024-06-01 11:01 | PM.PROC ---
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 LAD has luminal irregularities without significant stenosis. Left circumflex artery has severe mid to distal stenosis. Status post successful revascularization with 2 stents. Mid to distal RCA is culprit vessel and had 95% stenosis. Status post successful revascularization with 1 stent. Dual antiplatelet therapy with aspirin and Plavix for at least 1 year. High intensity statin therapy. Follow up visit with cardiology in 2 weeks Coding Level of Care Code Acute Code for Maura Fwd
--- NOTE | 2024-06-01 11:26 | ECG_ITS ---
[facility] Date: 2024-06-01 Pat Name: Kalin Alberto Department: Room: 106 Gender: Male Foreign Language Teacher: : 1950 Requested By: Trav Cobos Order Number: [id number] Lyndsey MD: John Carrion M.D. Measurements Intervals [place] Rate: 84 P: 80 NV: 153 QRS: 31 QRSD: 87 T: 61 QT: 351 QTc: 416 Interpretive Statements SINUS RHYTHM Compared to ECG 05/31/2024 20:56:49 T-wave abnormality no longer present Electronically Signed On 06-02-2024 20:16:28 INVISIBLE [employer] ORTHODONTIST by John Carrion M.D. [email or web address]
[2024-06-01] MEDS: levETIRAcetam 1,000 MG/100 ML PREMIX 400 MG IV (11:35)
[2024-06-01 11:50] LABS: ABG PCO2 44.9 mmHg (35-45); ABG PH Result 7.36 (7.35-7.45); Alveolar-Arterial Oxygen Gradi 3.6 mmHg (5-10); Arterial Blood Gas Hematocrit 48.6 % (42-52); Base Excess ABG -0.4 mmol/L (-2.0-2.0); Blood Gas Allen Test Pos; Blood Gas Operator Identificat glc; Blood Gas Sample Site Radial, left; Blood Gas Sample Type Arterial; Carboxyhemoglobin 1.6 %THgb (0.4-20.1); HCO3 ABG 25.5 mmol/L (22-26); HGB O2 Sat 92.2 % (95-100); Ionized Calcium Level - ABG 1.2 mmol/L (1.1-1.4); Methemoglobin < 0.0 % (0.4-1.5); Oxygen Device ROOM AIR; Oxygen Saturation ABG 93.3; PO2 ABG 66.4 mmHg (80.0-100.0); PO2 FiO2 Ratio Arterial Blood 316; Potassium Level - ABG 4.2 mmol/L (3.5-5.0); Total Hemoglobin 15.8 g/dL (14-18)
--- NOTE | 2024-06-01 14:54 | P.PN_ITS ---
Subjective 2 Subjective: Patient was seen this morning, before his cardiac authorization no chest pain complaints overnight, will undergo coronary angiography Patient was seen after his coronary angiography, status 2 cardiac stents, no recurrent chest pain I was urgently called back to the room, patient was having a seizure, on arrival he is alert to person, to place not to time he follows commands, but is postictal patient's tells me that patient knows when his seizures come on, he felt a seizure cannot come on, now is postictal, he seen multiple neurologist for his seizures, and they cannot figure out what is causing his seizures his tells me, discussed giving him a dose of Keppra, loading with Keppra, Ativan as needed placed on seizure precautions neurochecks, patient denies any chest pain, repeat ABG Vitals/I&O/Wt Last Vital Signs Temp 98.7 F 06/01/24 08:00 Pulse 71 06/01/24 12:00 Resp 20 H 06/01/24 12:00 BP 154/84 06/01/24 12:00 Pulse Ox 92 06/01/24 12:00 O2 Del Method Room Air 06/01/24 12:00 05/31/24 06/01/24 06/01/24 22:59 06:59 14:59 Intake Total 320 / 320 100 / 100 Output Total 0 / 0 500 / 500 1000 / 1000 Balance 320 / 320 -500 / -180 -900 / -900 Weight last 48 hrs Weight 106.594 kg Weight 103.419 kg Weight 103.419 kg Physical Exam 2 Const: COMMON NORMALS: no acute distress and patient oriented x3 Resp: COMMON NORMALS: normal respiratory effort, No retractions, No use of accessory muscles and clear to auscultation bilaterally AUSCULTATION: clear to auscultation bilaterally Cardio: COMMON NORMALS: regular rate, regular rhythm, S1 normal heart sound present and S2 normal heart sound present RATE: regular rate RHYTHM: r egular rhythm HEART SOUNDS: S1 normal heart sound present and S2 normal heart sound present GI: COMMON NORMALS: Normal to inspection, nondistended, normoactive bowel sounds present and non-tender Extremity: COMMON NORMALS: no pedal edema Neuro: COMMON NORMALS: patient oriented x3 Psych: COMMON NORMALS: mental status grossly normal Data 06/01/24 03:35 06/01/24 03:35 A&P Assessment and plan (1) Chest pain: (2) Seizure: Plan Chest pain ? Plan ? Serial EKGs, serial troponins, telemetry monitoring ? Cardiac echo CONCLUSIONS LV systolic function is normal with EF of 55-60% Grade 1 diastolic dysfunction Mild mitral regurgitation Mild tricuspid regurgitation No comparison studies are available. ? Aspirin, statin, Coreg, Plavix ? Monitor for recurrent chest pain ? Nitro as needed for chest pain ?Status post coronary angiography and stent placement # Full code # Lovenox for DVT prophylaxis Seizure -Seizure episode, now postictal -Load Keppra 1000 mg -Neurochecks, seizure precautions Attestations 2 Medical Necessity Statement*: Patient requires hospitalization for chest pain status post cardiac stenting, now with seizure Diagnoses Chest pain R07.9 Seizure R56.9
--- NOTE | 2024-06-01 17:43 | USCV_ITS ---
Kalin Alberto Age: 73 Gender: M : 1950 Exam Date: 06/01/2024 06:34 Ordering Phys: Trav Cobos MD Technologist: Campbell Ryder [place] [facility] [place]: chest pain BP: 147 / 77 HR: 72 Rhythm: Sinus Technical Quality: Adequate MEASUREMENTS (Male / Female) Normal Values 2D ECHO LV Diastolic Diameter PLAX 4.5 cm 4.2 - 5.9 / 3.9 - 5.3 cm IVS Diastolic Thickness 1.1 cm 0.6 - 1.0 / 0.6 - 0.9 cm IVS Systolic Thickness 1.5 cm LVPW Diastolic Thickness 1.5 cm 0.6 - 1.0 / 0.6 - 0.9 cm LVPW Systolic Thickness 1.5 cm LVOT Diameter 1.9 cm LV Ejection Fraction 2D Teich 67.2 % LV Ejection Fraction MOD 4C 73.8 % LV Ejection Fraction MOD 2C 62.4 % LV Ejection Fraction 2C AL 63.2 % LA Diameter 3.0 cm RA Systolic Volume 4C AL 22.1 ml RA Systolic Volume 4C MOD 22.8 ml LA Sys Volume AL 41.9 cm cubed LA Sys Volume Index AL 18.2 cm cubed/m squared IVC Diameter 1.8 cm M-MODE LA Ao Ratio MM 1.3 AV Cusp Separation MM 1.8 cm DOPPLER AV Peak Velocity 109.0 cm/s LVOT Peak Velocity 113.0 cm/s AV Area Cont Eq vti 2.6 cm squared AV Area Cont Eq pk 2.8 cm squared MV Peak Velocity 105.0 cm/s MV Area PHT 4.1 cm squared Mitral E to A Ratio 0.8 TV Peak Velocity 155.5 cm/s TR Peak Velocity 167.0 cm/s TR Peak Gradient 11.2 mmHg TR Mean Velocity 143.0 cm/s TR Mean Gradient 8.4 mmHg TR Velocity Time Integral 44.5 cm RV Ejection Time 0.3 s FINDINGS Left Ventricle Left ventricle is normal size. LV systolic function is normal with EF 55-60%. No regional wall abnormalities are seen. Grade 1 diatolic dysfunction. Right Ventricle Normal in size and function Right Atrium Normal in size Left Atrium Normal in size Mitral Valve Structurally normal mitral valve. Mild mitral regurgitation. Aortic Valve Structurally normal aortic valve. No significant stenosis or regurgitation. Tricuspid Valve Mild tricuspid regurgitation. Pulmonic Valve Not well visualized Pericardium Normal Aorta Normal in size IVC Appears to be normal CONCLUSIONS LV systolic function is normal with EF of 55-60% Grade 1 diastolic dysfunction Mild mitral regurgitation Mild tricuspid regurgitation No comparison studies are available. John Carrion MD (Electronically Signed) Final Date: 01 June 2024 12:03 S
[2024-06-01] MEDS: pantoprazole 40 mg SDV IVP (18:23)
[2024-06-01] MEDS: atorvastatin 40 mg Tablet PO (20:55)
[2024-06-02] VITALS (7 sets, daily range): BP systolic 127–147; BP diastolic 70–85; PULSE 70–85; RESP 14–20; TEMP 36.7–37.1; O2SAT 92–95
[2024-06-02 05:44] LABS: Basophils % 0.5 %; Eosinophils # 0.1 10^3/uL (0.0-0.8); Hematocrit 44.7 % (37-53); Lymphocytes # 1.8 10^3/uL (0.8-4.8); Lymphocytes % 20.9 %; Mean Corpuscular HGB Conc 33.1 g/dL (30-55); Mean Corpuscular Hemoglobin 30.8 pg (27-33); Mean Corpuscular Volume 92.9 fl (82-101); Mean Platelet Volume 9.5 fL (7.4-10.4); Monocytes # 1.1 10^3/uL (0.2-0.9); Monocytes % 12.3 %; Neutrophils # 5.65 10^3/uL (1.8-7.7); Neutrophils % 65.1 %; Nucleated Red Blood Cells % 0 %; Platelet Count 215 10^3/cmm (157-399); Red Blood Count 4.81 10^6/uL (3.85-5.65); Red Cell Distribution Width 12.5 % (12.1-15.1); White Blood Count 8.68 10^3/uL (3.29-11.43)
[2024-06-02 06:04] LABS: Anion Gap 12.2 (5-19); Blood Urea Nitrogen 12 mg/dL (8-23); Calcium 9.1 mg/dL (8.5-10.5); Carbon Dioxide 26 mmol/L (22-29); Chloride 104 mmol/L (98-107); Creatinine Clr Calc Pharmacy 70.7879; Glucose 104 mg/dL (65-115); Osmolality Calculated 286 mOsm/kg (285-295); Potassium 4.2 mmol/L (3.5-5.1); Sodium 138 mmol/L (136-145)
[2024-06-02] MEDS: levETIRAcetam 500 MG/100 ML PREMIX 400 MG IV (06:37)
--- NOTE | 2024-06-02 07:10 | ECG_ITS ---
[facility] Test Date: 2024-06-02 Pat Name: Kalin Alberto Department: Room: 106 Gender: Male Personnel Specialist: : 1950 Requested By: Trav Cobos Order Number: [id number] Lyndsey MD: John Carrion M.D. Measurements Intervals [place] Rate: 73 P: 77 PA: 163 QRS: 33 QRSD: 81 T: 62 QT: 355 QTc: 393 Interpretive Statements SINUS RHYTHM Compared to ECG 06/01/2024 11:26:43 No significant changes Electronically Signed On 06-02-2024 20:05:05 WINE PASTEUR[employer]ER by John Carrion M.D. [email or web address]
[2024-06-02] MEDS: gabapentin 300 mg Capsule PO (08:29)
[2024-06-02] MEDS: carvedilol 3.125 mg Tablet PO (08:29)
[2024-06-02] MEDS: clopidogrel 75 mg Tablet PO (08:29)
[2024-06-02] MEDS: aspirin 81 mg EC Tablet PO (08:29)
--- NOTE | 2024-06-02 09:26 | PM.PN ---
Vitals/I&O/Wt Last Vital Signs Temp 98.7 F 06/02/24 07:51 Pulse 77 06/02/24 07:51 Resp 20 H 06/02/24 07:51 BP 147/85 06/02/24 07:51 Pulse Ox 94 06/02/24 07:51 O2 Del Method Room Air 06/02/24 07:51 06/01/24 06/02/24 06/02/24 22:59 06:59 14:59 Intake Total 360 / 460 250 / 710 100 / 100 Balance 360 / -540 250 / -290 100 / 100 Weight last 48 hrs Weight 235 lb Weight 228 lb Weight 228 lb Data 06/02/24 05:08 06/02/24 05:08 Coding Level of Care Code Acute Code for Chg Fwd
--- NOTE | 2024-06-02 13:16 | P.DS_ITS ---
Discharge Providers Date of Admission: 05/31/24 17:50 Date of Discharge: June 02, 2024 Attending Provider at Admission: Trav Cobos MD Attending Provider at Discharge: Trav Cobos MD Primary Care Provider: Pete Pandey Diagnoses at Discharge Discharge Diagnosis (1) Chest pain: Status: Acute (2) Seizure: Status: Acute Reason for Visit Reason for Visit: chest pain Hospital Course Hospital Course Kalin Alberto is a 73 year old male with a past medical history of seizures, headaches, history of cardiac arrest in 2019 after right shoulder surgery due to respiratory failure, tree of cerebral infarction, 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 Patient reports a history of chest pain recently, he saw cardiology and was supposed to have an outpatient stress test June 18. Continue to have complaints of intermittent chest pain, left sided, substernal, stabbing-like pain, today he woke up early in the morning due to severe substernal chest pain lasting about 30 minutes. Does report the severity and the frequency of the chest pain is increasing, increasing with activity. Does report smoking cigarettes, no diagnosis of COPD Patient was admitted to [facility] for chest pain, NSTEMI, cardiology was consulted, received aspirin, statin, Plavix, heparin drip, underwent coronary angiography found to have left circumflex artery has severe mid to distal stenosis, s/p revascularization with 2 stents and Mid to distal RCA s/p with revascularization 1 stent. Patient tolerated procedure well, remains chest pain-free, will be discharged on aspirin, statin, Plavix, Coreg, beta-alexia with close follow-up with cardiology as outpatient. During his hospitalization patient had a breakthrough seizure, requiring Keppra, no recurrent breakthrough seizures. Will be discharged on Keppra 500 twice daily with a close follow-up with neurology as outpatient. -given your seizure, as per [place] state law, you cannot drive for at least 6 months, but follow up with Dr Mar for further discussion -please take aspirin and plavix, DONOT STOP TAKING THESE MEDICATIONS, THEY ARE KEEPING YOU HEART STENT OPEN -if you start developing bloody or black stools please comeback to the emergency room -if you have recurrent chest pain please comeback to the emergency room -see primary care about a sleep study -follow up with cardiology Physical Exam Const: COMMON NORMALS: no acute distress and patient oriented x3 Resp: COMMON NORMALS: normal respiratory effort, No retractions, No use of accessory muscles and clear to auscultation bilaterally AUSCULTATION: clear to auscultation bilaterally Cardio: COMMON NORMALS: regular rate, regular rhythm, S1 normal heart sound present and S2 normal heart sound present RATE: regular rate RHYTHM: regular rhythm HEART SOUNDS: S1 normal heart sound present and S2 normal heart sound present GI: COMMON NORMALS: Normal to inspection, nondistended, normoactive bowel sounds present and non-tender Extremity: COMMON NORMALS: no pedal edema Neuro: COMMON NORMALS: patient oriented x3 Psych: COMMON NORMALS: mental status grossly normal Discharge Data Studies Completed and Pending Completed Studies During Hospitalization Category Date Time Status XR chest 1V portable [id number] Stat Exams 05/31/24 15:00 Completed CV. echo complete* [id number] Stat Ultrasound 06/01/24 17:43 Completed Pending at discharge Category Date Time Status ARTISTIC DIRECTOR request for service Routine Exams 06/01/24 07:43 Taken Basic Metabolic Panel AM LABS Lab 06/03/24 04:00 Ordered Basic Metabolic Panel AM LABS Lab 06/04/24 04:00 Ordered Complete Blood Count w/Auto AM LABS Lab 06/03/24 04:00 Ordered Complete Blood Count w/Auto AM LABS Lab 06/04/24 04:00 Ordered Radiology Impressions Chest X-Ray 05/31/24 15:00 IMPRESSION: Pulmonary atelectasis or acute infiltrates within lower chest bilaterally. Laboratory Results WBC 8.68 10^3/uL (3.29-11.43) 06/02/24 05:08 RBC 4.81 10^6/uL (3.85-5.65) 06/02/24 05:08 Hgb 14.80 g/dL (11.27-16.99) 06/02/24 05:08 Hct 44.7 % (37-53) 06/02/24 05:08 MCV 92.9 fl (82-101) 06/02/24 05:08 MCH 30.8 pg (27-33) 06/02/24 05:08 MCHC 33.1 g/dL (30-55) 06/02/24 05:08 RDW 12.5 % (12.1-15.1) 06/02/24 05:08 Plt Count 215 10^3/cmm (157-399) 06/02/24 05:08 MPV 9.5 fL (7.4-10.4) 06/02/24 05:08 Neut % (Auto) 65.1 % 06/02/24 05:08 Lymph % (Auto) 20.9 % 06/02/24 05:08 [place] % (Auto) 12.3 % 06/02/24 05:08 Eos % (Auto) 1.0 % 06/02/24 05:08 Baso % (Auto) 0.5 % 06/02/24 05:08 Neut # (Auto) 5.65 10^3/uL (1.8-7.7) 06/02/24 05:08 Lymph # (Auto) 1.8 10^3/uL (0.8-4.8) 06/02/24 05:08 [place] # (Auto) 1.1 10^3/uL (0.2-0.9) H 06/02/24 05:08 Eos # (Auto) 0.1 10^3/uL (0.0-0.8) 06/02/24 05:08 Baso # (Auto) 0.0 10^3/uL (0.0-0.1) 06/02/24 05:08 Nucleated RBC % (auto) 0 % 06/02/24 05:08 Nucleated RBCs # 0.0 /100WBC 06/02/24 05:08 Specimen Type Arterial 06/01/24 11:38 Sample Site Radial, left 06/01/24 11:38 ABG pH 7.36 (7.35-7.45) 06/01/24 11:38 ABG pCO2 44.9 mmHg (35-45) 06/01/24 11:38 ABG pO2 66.4 mmHg (80.0-100.0) L 06/01/24 11:38 ABG PO2/FiO2 Ratio 316 06/01/24 11:38 ABG HCO3 25.5 mmol/L (22-26) 06/01/24 11:38 ABG O2 Saturation 93.3 06/01/24 11:38 ABG Base Excess -0.4 mmol/L (-2.0-2.0) 06/01/24 11:38 Cricket Test Pos 06/01/24 11:38 A-a O2 Gradient 3.6 mmHg (5-10) L 06/01/24 11:38 Hematocrit 48.6 % (42-52) 06/01/24 11:38 Hgb O2 Saturation 92.2 % (95-100) L 06/01/24 11:38 Carboxyhemoglobin 1.6 %THgb (0.4-20.1) 06/01/24 11:38 Methemoglobin < 0.0 % (0.4-1.5) L 06/01/24 11:38 Total Hemoglobin 15.8 g/dL (14-18) 06/01/24 11:38 Sodium 137.0 mmol/L (131-143) 06/01/24 11:38 Potassium 4.2 mmol/L (3.5-5.0) 06/01/24 11:38 Glucose 106.0 mg/dL (70-115) 06/01/24 11:38 Ionized Calcium 1.2 mmol/L (1.1-1.4) 06/01/24 11:38 O2 Delivery Device Room air 06/01/24 11:38 FiO2 21.0 % 06/01/24 11:38 Electrical Assembler ID glc 06/01/24 11:38 Sodium 138 mmol/L (136-145) 06/02/24 05:08 Potassium 4.2 mmol/L (3.5-5.1) 06/02/24 05:08 Chloride 104 mmol/L (98-107) 06/02/24 05:08 Carbon Dioxide 26 mmol/L (22-29) 06/02/24 05:08 Anion Gap 12.2 (5-19) 06/02/24 05:08 BUN 12 mg/dL (8-23) 06/02/24 05:08 Creatinine 1.1 mg/dL (0.7-1.2) 06/02/24 05:08 GFR Calculation Not Reportable 06/02/24 05:08 Glucose 104 mg/dL (65-115) 06/02/24 05:08 Estimat Average Glucose 131 05/31/24 15:09 Hemoglobin A1c 6.2 % (4.0-6.0) H 05/31/24 15:09 Calculated Osmolality 286 mOsm/kg (285-295) 06/02/24 05:08 Calcium 9.1 mg/dL (8.5-10.5) 06/02/24 05:08 Total Bilirubin 0.5 mg/dL (0.15-1.2) 05/31/24 15:09 AST 22 U/L (0-40) 05/31/24 15:09 ALT 24 U/L (0-41) 05/31/24 15:09 Alkaline Phosphatase 80 U/L (40-130) 05/31/24 15:09 Troponin T Baseline 15 ng/L (0-15) 05/31/24 15:09 Troponin T 120 Minute 15.84 ng/L (0-15) H 05/31/24 17:40 Delta Troponin T 0.84 ABS# (0-10) 05/31/24 17:40 Troponin T Hi Sens 6Hr 15.82 ng/L (0-15) H 05/31/24 20:50 Troponin T Hi Sens 6Hr Delta 0.82 ng/L (0-12) 05/31/24 20:50 NT-Pro-B Natriuret Pep 45 pg/mL (0-125) 05/31/24 17:40 Total Protein 6.6 g/dL (6.6-8.7) 05/31/24 15:09 Albumin 4.4 g/dL (3.5-5.2) 05/31/24 15:09 Globulin 2.2 g/dL (1.3-4.6) 05/31/24 15:09 Triglycerides 353 mg/dL (0-150) H 05/31/24 15:09 Cholesterol 228 mg/dL (0-200) H 05/31/24 15:09 LDL Cholesterol, Calc 124 mg/dL (50-129) 05/31/24 15:09 HDL Cholesterol 33 mg/dL (60-100) L 05/31/24 15:09 LDL/HDL Ratio 3.76 RATIO (0.00-3.22) H 05/31/24 15:09 Cholesterol/HDL Ratio 6.91 mg/dL (1.0-5.00) H 05/31/24 15:09 Lipase 25 U/L (13-60) 05/31/24 15:09 TSH 3.36 uIU/mL (0.27-4.20) 05/31/24 15:09 Vitals Last Vital Signs Temp 98.4 F 06/02/24 11:59 Pulse 75 06/02/24 11:59 Resp 18 06/02/24 11:59 BP 131/80 06/02/24 11:59 Pulse Ox 95 06/02/24 11:59 O2 Del Method Room Air 06/02/24 11:59 Discharge Plan Discharge Patient Disposition: Home Condition: Stable Prescriptions: New atorvastatin 40 mg Tablet 40 mg PO BEDTIME 30 Days Qty: 30 0RF clopidogrel 75 mg Tablet 75 mg PO DAILY 30 Days Qty: 30 0RF aspirin 81 mg Tablet,Delayed Release (Dr/Ec) 81 mg PO DAILY 30 Days Qty: 30 0RF carvedilol 3.125 mg Tablet 3.125 mg PO BID 30 Days Qty: 60 0RF nitroglycerin 0.4 mg Tablet, Sublingual 0.4 mg sublingual Q5M PRN (Reason: Chest Pain) 30 Days Qty: 30 0RF levetiracetam [Keppra] 500 mg tablet 500 mg PO BID 30 Days Qty: 60 0RF Continued albuterol sulfate 90 mcg/actuation HFA aerosol inhaler 2 puff inhalation Q6H PRN (Reason: Shortness Of Breath) fluticasone furoate-vilanterol [Breo Ellipta] 100-25 mcg/dose blister with device 1 inh inhalation DAILY furosemide 40 mg tablet 40 mg PO QAM gabapentin 300 mg capsule 300 mg PO BID ipratropium-albuterol 0.5 mg-3 mg(2.5 mg base)/3 mL solution for nebulization 3 ml inhalation Q6H PRN (Reason: Shortness Of Breath) potassium chloride 10 mEq capsule, extended release 10 meq PO DAILY Discharge Orders: Discharge Order (Routine); Ordered 06/02/24 Ordered By: Trav Cobos Referrals: Kedar Mar MD [Physician] - 1 week (We have notified your physician's clinic of the need for a follow-up appointment to be scheduled. If you have not heard from them within the next 2 business days, please call them directly. ) Pete Pandey [Primary Care Provider] - 4-7 days (Please call for and follow-up within 4 to 7 days. Thank you!) Clarissa Ferrara FNP [Nurse Practitioner] - 7-10 days (We have notified your phys ician's clinic of the need for a follow-up appointment to be scheduled. If you have not heard from them within the next 2 business days, please call them directly. ) Discharge Diet: Cardiac Discharge Activity: Resume usual activity Patient Instructions: Nitroglycerin (By mouth), Atorvastatin (By mouth) (Lipitor, Atorvaliq), Carvedilol (By mouth) (Coreg, Coreg CR, Hypertenevide- 12.5), Clopidogrel (By mouth) (Plavix), Levetiracetam (By mouth) (Keppra, Keppra XR, Spritam, Elepsia XR), Coronary Angioplasty (DC), New-Onset Seizure in Adults (DC), Generalized Tonic Clonic Seizures (ED), Opioid Safety, Post Angiogram Home Care Instructions Activity Restrictions/Additional Instructions: -given your seizure, as per [place] state law, you cannot drive for at least 6 months, but follow up with Dr Mar for further discussion -please take aspirin and plavix, DONOT STOP TAKING THESE MEDICATIONS, THEY ARE KEEPING YOU HEART STENT OPEN -if you start developing bloody or black stools please comeback to the emergency room -if you have recurrent chest pain please comeback to the emergency room -see primary care about a sleep study -follow up with cardiology Discharge Attestations Time Spent in Discharge Care*: greater than 30 min Time Spent in Smoking Cessation: 3 to 10 minutes Quality Metrics Clinical Quality Measures [ No reported AMI, CVA or VTE this stay] Coding Level of Care Code 90829 Total time (in minutes) for Discharge: 45 Diagnoses Chest pain R07.9 Seizure R56.9
== END 2024-06-02 14:36 | disposition home or self-care (01) | DRG 322 ==
LOC: ER 17:33 → CSU 17:50
PROVIDERS: Emergency Medicine; Internal Medicine; Admitting Provider Family Medicine; Emergency Provider Family Medicine; PCP Family Medicine; Visit Provider Family Medicine
PROC: 027136Z Dilation of Coronary Artery, Two Arteries with Three Drug-eluting Intraluminal Devices, Percutaneous Approach (ICD-10-PCS; principal; 2024-06-01 09:30)
PROC: 027136Z Dilation of Coronary Artery, Two Arteries with Three Drug-eluting Intraluminal Devices, Percutaneous Approach (ICD-10-PCS; 2024-06-01 09:30)
DX: I21.4 Non-ST elevation (NSTEMI) myocardial infarction (principal); R56.9 Unspecified convulsions; H54.61 Unqualified visual loss, right eye, normal vision left eye; F17.210 Nicotine dependence, cigarettes, uncomplicated; Z86.74 Personal history of sudden cardiac arrest; Z86.73 Personal history of transient ischemic attack (TIA), and cerebral infarction without residual deficits
CPT/HCPCS: 36415; 36600; 71045; 80048; 80051; 80053; 80061; 82330; 82803; 82805; 83036; 83690; 83880; 84443; 84484; 85025; 85347; 93005; 93306; 93454; 94664; 96372; 96374; 96375; 96376; 99152; 99153; 99285; C1725; C1769; C1874; C1887; C1894; C9600; J1200; J1644; J1650; J1953; J2250; J2470; J3010; J3490; J7050; Q9967

== ENCOUNTER 2024-06-16 11:17 | Observation (INO) | payer MEDICARE, OTHER, SELFPAY ==
[2024-06-16] VITALS (10 sets, daily range): BP systolic 112–159; BP diastolic 59–80; PULSE 62–117; RESP 16–21; TEMP 36.5; O2SAT 90–97; BMI 34.3; BMI 35.7
--- NOTE | 2024-06-16 11:37 | XRR_ITS ---
PROCEDURE INFORMATION: Exam: XR Chest Exam date and time: 06/16/2024 11:39 AM Age: 73 years old Clinical indication: Prior surgery; Surgery date: <1 month; Surgery type: Cardiac stents; Patient HX: Patient presents via EMS from home for evaluation of substernal/left chest pressure and pain. He states he was seen here a few weeks ago and had an mi with stents placed. Patient states he began to feel nauseated and became diaphoretic while getting ready for jew around 9 this morning. He describes the pain as pressure in his left central chest. ; Additional info: Chest pain TECHNIQUE: Imaging protocol: Radiologic exam of the chest. Views: 1 view. COMPARISON: CR XR chest 1V portable [id number] 05/31/2024 3:13 PM FINDINGS: Lungs: Redemonstrated calcified granulomas in the lungs bilaterally. Redemonstrated interstitial opacities in the lower lung bilaterally [id number]. Mild right basilar atelectasis. Pleural spaces: No large pleural effusion. No definitive pneumothorax. Heart/Mediastinum: The cardiomediastinal silhouette is stable. Bones/joints: Degenerative changes of the spine. XR/XR chest 1V portable [id number] IMPRESSION: Essentially stable bibasilar interstitial opacities may represent atelectasis and/or pulmonary edema. Superimposed infectious or inflammatory infiltrate is not entirely excluded.
[2024-06-16 11:56] LABS: Basophils # 0.1 10^3/uL (0.0-0.1); Basophils % 0.4 %; Eosinophils # 0.1 10^3/uL (0.0-0.8); Eosinophils % 0.9 %; Lymphocytes # 1.8 10^3/uL (0.8-4.8); Mean Corpuscular HGB Conc 33.8 g/dL (30-55); Mean Corpuscular Hemoglobin 30.7 pg (27-33); Mean Corpuscular Volume 90.9 fl (82-101); Mean Platelet Volume 8.9 fL (7.4-10.4); Monocytes # 0.9 10^3/uL (0.2-0.9); Monocytes % 6.3 %; Neutrophils # 10.95 10^3/uL (1.8-7.7); Neutrophils % 78.8 %; Nucleated Red Blood Cells % 0 %; Platelet Count 305 10^3/cmm (157-399); Red Blood Count 4.95 10^6/uL (3.85-5.65); Red Cell Distribution Width 12.5 % (12.1-15.1); White Blood Count 13.92 10^3/uL (3.29-11.43)
[2024-06-16 12:14] LABS: Troponin(5th) Baseline 16 ng/L (0-15)
[2024-06-16 12:16] LABS: Alanine Aminotransferase 20 U/L (0-41); Albumin Level 4.1 g/dL (3.5-5.2); Alkaline Phosphatase 75 U/L (40-130); Anion Gap 17.4 (5-19); Aspartate Amino Transferase 16 U/L (0-40); Blood Urea Nitrogen 16 mg/dL (8-23); Calcium 9.2 mg/dL (8.5-10.5); Carbon Dioxide 25 mmol/L (22-29); Chloride 98 mmol/L (98-107); Creatinine Clr Calc Pharmacy 63.6227; Globulin 2.2 g/dL (1.3-4.6); Glucose 99 mg/dL (65-115); Osmolality Calculated 283 mOsm/kg (285-295); Potassium 4.4 mmol/L (3.5-5.1); Sodium 136 mmol/L (136-145); Total Bilirubin 0.5 mg/dL (0.15-1.2); Total Protein 6.3 g/dL (6.6-8.7)
--- NOTE | 2024-06-16 12:40 | ED_ITS ---
HPI - Chest Pain 2 General: Chief Complaint: Chest Pain Stated Complaint: chest pain Time Seen by Provider: 06/16/24 11:37 History of Present Illness: 73-year-old male with relevant past [facility] history of coronary artery disease status post stents x 3 on 06/01/2024. He had 2 stents placed in his circumflex and 1 in his RCA. Patient reports this morning around 9:00 he started experiencing sharp left-sided chest discomfort. It felt like a muscle spasm. It hurt with certain maneuvers and with coughing or taking deep breaths. He also reports he has been having right calf pain for the last few days. His nurse practitioner took him off of his statin thinking this was the cause. He has not seen any extremity swelling, redness, or asymmetry. Patient reports after about an hour of sharp pretty severe pain it began to subside but then picked back up with a chest pressure and heaviness. He reports that he was trying to go into [facility] but could not get out of his car because he was diaphoretic and short of breath as well. Patient received aspirin and a total of 4 nitroglycerin. Pain was relieved after this but is currently rating it around a 1 or 2 out of 10 in the ER. Patient reports compliance with his medications. Related Data Home Medications Medication Instructions Recorded Confirmed fluticasone furoate 100 1 inh inhalation DAILY 05/14/24 05/31/24 mcg-vilanterol 25 mcg/dose inhalation powder (Breo Ellipta) furosemide 40 mg tablet 40 mg PO QAM 05/14/24 05/31/24 gabapentin 300 mg capsule 300 mg PO BID 05/14/24 05/31/24 ipratropium 0.5 mg-albuterol 3 mg 3 ml inhalation Q6H PRN Shortness 05/14/24 05/31/24 (2.5 mg base)/3 mL nebulization Of Breath soln potassium chloride 10 mEq 10 meq PO DAILY 05/14/24 05/31/24 capsule,extended release albuterol sulfate 90 mcg/actuation 2 puff inhalation Q6H PRN 05/22/24 05/31/24 aerosol inhaler Shortness Of Breath Previous Rx's Medication Instructions Recorded aspirin 81 mg tablet,delayed 81 mg PO DAILY 30 days #30 tabs 06/02/24 release atorvastatin 40 mg tablet 40 mg PO BEDTIME 30 days #30 tabs 06/02/24 carvedilol 3.125 mg tablet 3.125 mg PO BID 30 days #60 tabs 06/02/24 clopidogrel 75 mg tablet 75 mg PO DAILY 30 days #30 tabs 06/02/24 levetiracetam 500 mg tablet 500 mg PO BID 30 days #60 tabs 06/02/24 (Keppra) nitroglycerin 0.4 mg sublingual 0.4 mg sublingual Q5M PRN Chest 06/02/24 tablet Pain 30 days #30 tabs Allergies Allergy/AdvReac Type Severity Reaction Status Date / Time watermelon Allergy [place] Verified 06/16/24 11:37 Lip/Tongue/Throat Review of Systems 2 General: Reports: 10 or more systems reviewed and unremarkable except in HPI and below PFSH ED 2 PFSH: Surgical History H/O shoulder surgery History of colon surgery H/O angioplasty History of appendectomy Family History Brother Diabetes Cancer Mother Stroke Denies family history of CAD (coronary artery disease) Social History Smoking and tobacco/nicotine status: current every day tobacco/nicotine user cigarettes Packs smoked per day: 0.5 Years cigarettes smoked: 45 Alcohol intake: never Substance/Drug Use: never Physical Exam 2 Narrative: EXAM NARRATIVE: Awake, alert, nontoxic. Cooperative and conversational. Homans' sign negative. No calf swelling redness or asymmetry. There is some tenderness to palpation of the gastrocnemius muscle on the right side. Const: COMMON NORMALS: no limitations, alert and well nourished EXAM LIMITATIONS: no altered mental status HENMT: COMMON NORMALS: normocephalic, atraumatic and external ears normal H EAD & SCALP: normocephalic and atraumatic EXTERNAL EAR: Yes external ears normal MOUTH: no muffled voice Eye: COMMON NORMALS: EOMs intact bilaterally, conjunctivae normal and no scleral icterus CONJUNCTIVA: Yes conjunctivae normal Neck/C-Spine: COMMON NORMALS: no JVD GENERAL: Yes normal visual inspection and Yes trachea midline Resp: COMMON NORMALS: normal respiratory effort, No use of accessory muscles and clear to auscultation bilaterally AUSCULTATION: clear to auscultation bilaterally Cardio: COMMON NORMALS: no JVD, regular rate and regular rhythm RATE: r egular rate RHYTHM: regular rhythm GI: COMMON NORMALS: Soft to palpation and non-tender PALPATION: Yes Soft to palpation and No Guarding due to palpation present (GI) Neuro: COMMON NORMALS: moves all extremities, no focal motor deficits and no sensory deficits noted SENSORIUM/ORIENTATION: Yes alert SPEECH: speech normal Psych: COMMON NORMALS: mental status grossly normal, Normal thought process present, cooperative, normal affect and speech normal SPEECH: Yes normal speech THOUGHT PROCESS: Normal thought process present Skin: COMMON NORMALS: no rashes or lesions noted, turgor normal and no jaundice GENERAL SKIN EXAM: no rashes or lesions noted and turgor normal Course 2 Vital Signs: Vital signs: Vital Signs Pulse Rate 62 06/16/24 11:29 Respiratory Rate 17 06/16/24 11:29 Blood Pressure 112/59 06/16/24 11:29 Pulse Oximetry 93 06/16/24 11:29 Oxygen Delivery Me thod Room Air 06/16/24 11:29 MDM - Chest Pain Medical Decision Making Differential diagnosis includes in-stent restenosis, atypical/chest wall pain, myocarditis, pericarditis, pneumonia, pleurisy, pulmonary embolism, right lower extremity DVT, CHF, pulmonary hypertension, other. EKG today was obtained at 11:26 AM. EP interpretation. Sinus rhythm, rate 60, normal axis, normal QRS and QTc. No concerning ST segment elevations or depressions. Initial troponin is 16 Chest x-ray 1 view. EP interpretation. There is some bibasilar infiltrate which appears unchanged compared to prior. Renal function has returned and creatinine is 1.2. We will proceed with CT angiogram of the chest to evaluate for any pulmonary embolism and to have a further look at the chest to see if there is any infectious infiltrate. Ultrasound right lower extremity is pending also. Discussed with Dr. Rivera. Patient will be admitted to the [facility] for trending troponins, follow-up on CTA, follow-up on ultrasound right lower extremity, and cardiology consultation. Lab Data 06/16/24 11:48 06/16/24 11:48 Radiology Impressions Chest X-Ray 06/16/24 11:37 IMPRESSION: Essentially stable bibasilar interstitial opacities may represent atelectasis and/or pulmonary edema. Superimposed infectious or inflammatory infiltrate is not entirely excluded. Laboratory Results WBC 13.92 10^3/uL (3.29-11.43) H 06/16/24 11:48 RBC 4.95 10^6/uL (3.85-5.65) 06/16/24 11:48 Hgb 15.20 g/dL (11.27-16.99) 06/16/24 11:48 Hct 45.0 % (37-53) 06/16/24 11:48 MCV 90.9 fl (82-101) 06/16/24 11:48 MCH 30.7 pg (27-33) 06/16/24 11:48 MCHC 33.8 g/dL (30-55) 06/16/24 11:48 RDW 12.5 % (12.1-15.1) 06/16/24 11:48 Plt Count 305 10^3/cmm (157-399) 06/16/24 11:48 MPV 8.9 fL (7.4-10.4) 06/16/24 11:48 Neut % (Auto) 78.8 % 06/16/24 11:48 Lymph % (Auto) 13.0 % 06/16/24 11:48 [place] % (Auto) 6.3 % 06/16/24 11:48 Eos % (Auto) 0.9 % 06/16/24 11:48 Baso % (Auto) 0.4 % 06/16/24 11:48 Neut # (Auto) 10.95 10^3/uL (1.8-7.7) H 06/16/24 11:48 Lymph # (Auto) 1.8 10^3/uL (0.8-4.8) 06/16/24 11:48 [place] # (Auto) 0.9 10^3/uL (0.2-0.9) 06/16/24 11:48 Eos # (Auto) 0.1 10^3/uL (0.0-0.8) 06/16/24 11:48 Baso # (Auto) 0.1 10^3/uL (0.0-0.1) 06/16/24 11:48 Nucleated RBC % (auto) 0 % 06/16/24 11:48 Nucleated RBCs # 0.0 /100WBC 06/16/24 11:48 Sodium 136 mmol/L (136-145) 06/16/24 11:48 Potassium 4.4 mmol/L (3.5-5.1) 06/16/24 11:48 Chloride 98 mmol/L (98-107) 06/16/24 11:48 Carbon Dioxide 25 mmol/L (22-29) 06/16/24 11:48 Anion Gap 17.4 (5-19) 06/16/24 11:48 BUN 16 mg/dL (8-23) 06/16/24 11:48 Creatinine 1.2 mg/dL (0.7-1.2) 06/16/24 11:48 GFR Calculation Not Reportable 06/16/24 11:48 Glucose 99 mg/dL (65-115) 06/16/24 11:48 Calculated Osmolality 283 mOsm/kg (285-295) L 06/16/24 11:48 Calcium 9.2 mg/dL (8.5-10.5) 06/16/24 11:48 Total Bilirubin 0.5 mg/dL (0.15-1.2) 06/16/24 11:48 AST 16 U/L (0-40) 06/16/24 11:48 ALT 20 U/L (0-41) 06/16/24 11:48 Alkaline Phosphatase 75 U/L (40-130) 06/16/24 11:48 Troponin T Baseline 16 ng/L (0-15) H 06/16/24 11:48 Total Protein 6.3 g/dL (6.6-8.7) L 06/16/24 11:48 Albumin 4.1 g/dL (3.5-5.2) 06/16/24 11:48 Globulin 2.2 g/dL (1.3-4.6) 06/16/24 11:48 XR interpretation done by ED provider, pending radiology final review Discharge Plan Discharge Patient Disposition: Placed in Observation Clinical Impression: Chest pain at rest, CAD (coronary artery disease), Right calf pain Condition: Stable Prescriptions: No Action albuterol sulfate 90 mcg/actuation HFA aerosol inhaler 2 puff inhalation Q6H PRN (Reason: Shortness Of Breath) fluticasone furoate-vilanterol [Breo Ellipta] 100-25 mcg/dose blister with device 1 inh inhalation DAILY furosemide 40 mg tablet 40 mg PO QAM gabapentin 300 mg capsule 300 mg PO BID ipratropium-albuterol 0.5 mg-3 mg(2.5 mg base)/3 mL solution for nebulization 3 ml inhalation Q6H PRN (Reason: Shortness Of Breath) potassium chloride 10 mEq capsule, extended release 10 meq PO DAILY atorvastatin 40 mg Tablet 40 mg PO BEDTIME 30 Days Qty: 30 0RF clopidogrel 75 mg Tablet 75 mg PO DAILY 30 Days Qty: 30 0RF aspirin 81 mg Tablet,Delayed Release (Dr/Ec) 81 mg PO DAILY 30 Days Qty: 30 0RF carvedilol 3.125 mg Tablet 3.125 mg PO BID 30 Days Qty: 60 0RF nitroglycerin 0.4 mg Tablet, Sublingual 0.4 mg sublingual Q5M PRN (Reason: Chest Pain) 30 Days Qty: 30 0RF levetiracetam [Keppra] 500 mg tablet 500 mg PO BID 30 Days Qty: 60 0RF Referrals: Pete Pandey [Primary Care Provider] - Coding Level of Care Code ED Museum Attendant for Maura Ponce
--- NOTE | 2024-06-16 12:43 | CTR_ITS ---
PROCEDURE INFORMATION: Exam: CTA Chest With Contrast Exam date and time: 06/16/2024 12:53 PM Age: 73 years old Clinical indication: Shortness of breath; Prior surgery; Surgery date: <1 month; Surgery type: Stents; Additional info: SOB, chest pain, right calf pain, recent admission TECHNIQUE: Imaging protocol: Computed tomographic angiography of the chest with contrast. Exam focused on the arteries. 3D rendering (Not supervised by radiologist): MIP and/or 3D reconstructed images were created by the technologist. Radiation optimization: All CT scans at this facility use at least one of these dose optimization techniques: automated exposure control; mA and/or kV adjustment per patient size (includes targeted exams where dose is matched to clinical indication); or iterative reconstruction. Contrast material: OMNI 350; Contrast volume: 67 ml; Contrast route: INTRAVENOUS (IV); COMPARISON: CR (CHEST, ) 06/16/2024 11:39 AM RADIATION DOSE METRICS: Total DLP (mGy-cm): 516.04 FINDINGS: Pulmonary arteries: Adequate visualization of the pulmonary arteries to the subsegmental level. No pulmonary embolism. Aorta: Ascending aorta is normal in caliber. Lungs: Benign calcified granuloma along the posterior left lower lung base Pleural spaces: Unremarkable. No pneumothorax. No pleural effusion. Heart: Unremarkable. No cardiomegaly. No pericardial effusion. Coronary arteries: Moderate coronary calcifications predominantly along the LAD . Lymph nodes: Unremarkable. No enlarged lymph nodes. Spleen: The spleen demonstrates punctate calcifications, consistent with remote granulomatous organism exposure. Bones/joints: Unremarkable. No acute fracture. Soft tissues: Unremarkable. CT/CT angio chest PE protcl [id number] IMPRESSION: 1. No pulmonary embolism. 2. Moderate coronary calcifications predominantly along the LAD .
--- NOTE | 2024-06-16 12:48 | USR_ITS ---
PROCEDURE INFORMATION: Exam: US Duplex Right Lower Extremity Veins, Limited Exam date and time: 06/16/2024 2:05 PM Age: 73 years old Clinical indication: Pain; Leg, lower; Right; Additional info: Calf pain, SOB, cp TECHNIQUE: Imaging protocol: Real-time duplex ultrasound of the right extremity with 2-D zheng scale, color Doppler flow and spectral waveform analysis including responses to compression and other maneuvers (when performed) with image documentation. Limited exam was focused on the right lower extremity veins. COMPARISON: No relevant prior studies available. FINDINGS: Right deep veins: Unremarkable. The common femoral, femoral, proximal profunda femoral and popliteal veins are patent without thrombus. Normal Doppler waveforms. Normal compressibility and/or augmentation response. Superficial veins: Greater saphenous vein at the saphenofemoral junction is patent without thrombus. Soft tissues: Unremarkable. US/[place] [id number] IMPRESSION: No evidence of deep vein thrombosis.
[2024-06-16] MEDS: iohexol 350 mg/mL 500 mL Btl (per mL) IV (12:56)
--- NOTE | 2024-06-16 13:37 | ECG_ITS ---
[facility]: 2024-[facility]16 Pat Name: Kalin Alberto Department: Room: Gender: Male [employer]: : [id number] Requested By: Francisco Love Order Number: [id number] Reading MD: Measurements Intervals [place] Rate: 60 P: 68 SD: 108 QRS: 51 QRSD: 86 T: 69 QT: 408 QTc: 409 Interpretive Statements SINUS RHYTHM WITH SHORT SD INTERVAL No previous ECG available for comparison [email or web address]
[2024-06-16 14:21] LABS: Troponin 5 2HR 14.48 ng/L (0-15)
[2024-06-16 14:25] LABS: Troponin 5 2HR Delta -1.52 ABS# (0-10)
[2024-06-16 16:10] LABS: SARS Covid-2 Antigen negative (Negative)
[2024-06-16] MEDS: pantoprazole 40 mg SDV IVP (16:43)
[2024-06-16] MEDS: guaiFENesin-dextromethorphan UDC 10 mL 5 ML PO (16:43)
[2024-06-16] MEDS: nitroglycerin 1 gm/inch oint Pkt 0.5 INCH TOPICAL ×2 (16:44→22:05)
[2024-06-16] MEDS: TRAMadol 50 mg Tablet PO (16:44)
--- NOTE | 2024-06-16 16:51 | PM.CONSULT ---
Providers/Reason For Consult Consulting Physician/Specialty*: Emelyn Aggarwal MD Reason for Consult*: Chest pain Requesting Physician: Dr. Rivera Attending Physician: Rosario Rivera MD Primary Care Provider: Pete Pandey History of Present Illness History of Present Illness Kalin Alberto is a 73 year old male past medical history significant for coronary artery disease who recently on 01 June underwent 3 drug-eluting stent to to mid circumflex and 1 in mid to distal RCA for unstable angina at [facility] healthcare was in his usual state of health until this morning when patient started having chest pain, he described pain get worse on taking deep breath, does not have any exertional component to it. Patient says that for the past few days he is having chest possible infection and coughing very hard. on physical examination he is tender to touch and pain can be reproduced upon pushing on his anterior chest wall. Twelve-lead EKG and initial cardiac markers are not suggestive of ischemia. Review of Systems General: Reports: 10 or more systems reviewed and unremarkable except in HPI and below Eyes: Denies: photophobia Medications/Allergies Home Medications Medication Instructions Recorded Confirmed Last Taken Type fluticasone furoate 100 1 inh inhalation DAILY 05/14/24 06/16/24 05/31/24 History mcg-vilanterol 25 mcg/dose inhalation powder (Breo Ellipta) furosemide 40 mg tablet 40 mg PO QAM 05/14/24 06/16/24 06/16/24 History gabapentin 300 mg capsule 300 mg PO BID 05/14/24 06/16/24 06/16/24 History ipratropium 0.5 mg-albuterol 3 mg 3 ml inhalation Q6H PRN Shortness 05/14/24 06/16/24 06/16/24 History (2.5 mg base)/3 mL nebulization Of Breath soln potassium chloride 10 mEq 10 meq PO DAILY 05/14/24 06/16/24 06/16/24 History capsule,extended release albuterol sulfate 90 mcg/actuation 2 puff inhalation Q6H PRN 05/22/24 06/16/24 Unknown History aerosol inhaler Shortness Of Breath aspirin 81 mg tablet,delayed 81 mg PO DAILY 30 days #30 tabs 06/02/24 06/16/24 06/16/24 Rx release atorvastatin 40 mg tablet 40 mg PO BEDTIME 30 days #30 tabs 06/02/24 06/16/24 Unknown Rx carvedilol 3.125 mg tablet 3.125 mg PO BID 30 days #60 tabs 06/02/24 06/16/24 06/16/24 Rx clopidogrel 75 mg tablet 75 mg PO DAILY 30 days #30 tabs 06/02/24 06/16/24 06/16/24 Rx levetiracetam 500 mg tablet 500 mg PO BID 30 days #60 tabs 06/02/24 06/16/24 06/16/24 Rx (Keppra) nitroglycerin 0.4 mg sublingual 0.4 mg sublingual Q5M PRN Chest 06/02/24 06/16/24 06/16/24 Rx tablet Pain 30 days #30 tabs Allergies Allergy/AdvReac Type Severity Reaction Status Date / Time watermelon Allergy ALGY-Swell Verified 06/16/24 11:37 Lip/Tongue/Throat Current Medications Generic Name Dose Route Start Last Admin Trade Name Freq PRN Reason Stop Dose Admin Nitroglycerin 0.5 inch 06/16/24 15:45 06/16/24 16:44 Nitroglycerin 1 Gm/Inch Oint Pkt TOPICAL 0.5 inch Q6H PEEWEE Administration Pantoprazole Sodium 40 mg 06/16/24 16:25 06/16/24 16:43 Pantoprazole 40 Mg Sdv IVP 40 mg DAILY PEEWEE Administration PFSH Acute PFSH: Medical History (Updated 06/16/24 @ 17:17 by Rosario Rivera MD) Diastolic dysfunction, left ventricle COVID-19 Non-ST elevation MD (NSTEMI) Cardiac arrest 2020 Seizure disorder CAD (coronary artery disease) Surgical History H/O shoulder surgery History of colon surgery H/O angioplasty History of appendectomy Family History Brother Diabetes Cancer Mother Stroke Denies family history of CAD (coronary artery disease) Social History Smoking and tobacco/nicotine status: current every day tobacco/nicotine user cigarettes Packs smoked per day: 0.5 Years cigarettes smoked: 45 Alcohol intake: never Substance/Drug Use: never Dietary Habits: Current diet type/program: low carbohydrate Caffeine: Yes Vitals/I&O/Wt Last Vital Signs Pulse 84 06/16/24 16:44 Resp 16 06/16/24 13:02 BP 159/80 06/16/24 16:44 Pulse Ox 95 06/16/24 13:02 O2 Del Method Room Air 06/16/24 13:02 Weight last 48 hrs Weight 226 lb Physical Exam Const: OTHER: GENERAL: Patient is alert, awake and oriented x3. HEART: Regular S1 and S2. No murmur, rub or gallop. LUNGS: Clear to auscultate bilaterally. CENTRAL NERVOUS SYSTEM: Grossly nonfocal. EXTREMITIES: Lower extremities with out edema bilaterally. Data 06/16/24 11:48 06/16/24 11:48 A&P Assessment and plan (1) CAD (coronary artery disease): Patient chest pain is atypical however he is high risk for coronary artery disease, he will be rule out, may can be treated with NSAIDs continue to monitor on the telemetry and serial cardiac markers continue aspirin statin beta-alexia and clopidogrel (2) Diastolic dysfunction, left ventricle: Well compensated continue current regimen (3) Chest pain at rest: Most likely atypical and musculoskeletal in nature however cannot rule out unstable angina therefore we will monitor overnight. Further plan will advise as per progress the patient Consult Attestations Medical Necessity Statement: Patient will be observed overnight Coding Level of Care Code Acute Code for [facility] Diagnoses CAD (coronary artery disease) I25.10 Diastolic dysfunction, left ventricle I51.9 Chest pain at rest R07.9
--- NOTE | 2024-06-16 17:09 | P.HP_ITS ---
Providers/Chief Complaint 2 Admitting Physician: Rosario Rivera MD Primary Care Provider: Pete Pandey Chief Complaint: chest pain History of Present Illness Kalin Alberto is a 73 year old male with past medical history of CAD most recent multivessel PCI to RCA and LCx within the last 3 weeks, Seizure disorder, cardiac arrest back in 2019 presents to the ER today because of chest pain which started today morning when he woke up. Chest pain is sharp in nature retrosternal radiating to anterior left hemithorax. Associated with dizziness and mild nausea. Pain is reproducible, gets worse on cough. Patient states he has been having acute bouts of cough for last 1 week. He did have extreme bout of cough last night. Denies having any pain in last few weeks or days upon exertion. Review of Systems 2 General: Reports: 10 or more systems reviewed and unremarkable except in HPI and below Const: Denies: fever(s), chills or body aches Eyes: Denies: change in vision, blurry vision or photophobia ENMT: Reports: hoarseness; Denies: throat pain, enlarged tonsils, odynophagia or nasal congestion Card: Denies: chest pain, palpitations, irregular heart rhythm, edema, swelling of feet/ankles, lightheadedness, pre-syncope, dyspnea on exertion or orthopnea Resp: Denies: dyspnea, productive cough, non-productive cough, wheezing, stridor, pain on inspiration, change in phlegm color, hemoptysis or chest congestion GI: Denies: abdominal pain, nausea, vomiting, hematemesis, coffee ground emesis, dysphagia, heartburn, diarrhea, constipation, GI cramping, change in stool character, hematochezia or melena : Denies: flank pain, dysuria, urinary frequency, urinary urgency, urinary hesitancy or hematuria Musc: Denies: neck pain, back pain, extremity pain, joint swelling, joint warmth or deformity Neuro: Denies: headache(s), numbness in extremities, weakness in extremities, sensory changes, difficulty walking, frequent falls, dizziness, vertigo, behavioral changes, Slurred speech present or seizure-like activity Psych: Denies: anxiety, depression, suicidal ideation or homicidal ideation Endo: Denies: polyuria, polydipsia, tired all the time, cold intolerance or hot flashes Francis/Lymph: Denies: easy bruising or easy bleeding Medications/Allergies Home Medications Medication Instructions Recorded Confirmed Last Taken Type fluticasone furoate 100 1 inh inhalation DAILY 05/14/24 06/16/24 05/31/24 History mcg-vilanterol 25 mcg/dose inhalation powder (Breo Ellipta) furosemide 40 mg tablet 40 mg PO QAM 05/14/24 06/16/24 06/16/24 History gabapentin 300 mg capsule 300 mg PO BID 05/14/24 06/16/24 06/16/24 History ipratropium 0.5 mg-albuterol 3 mg 3 ml inhalation Q6H PRN Shortness 05/14/24 06/16/24 06/16/24 History (2.5 mg base)/3 mL nebulization Of Breath soln potassium chloride 10 mEq 10 meq PO DAILY 05/14/24 06/16/24 06/16/24 History capsule,extended release albuterol sulfate 90 mcg/actuation 2 puff inhalation Q6H PRN 05/22/24 06/16/24 Unknown History aerosol inhaler Shortness Of Breath aspirin 81 mg tablet,delayed 81 mg PO DAILY 30 days #30 tabs 06/02/24 06/16/24 06/16/24 Rx release atorvastatin 40 mg tablet 40 mg PO BEDTIME 30 days #30 tabs 06/02/24 06/16/24 Unknown Rx carvedilol 3.125 mg tablet 3.125 mg PO BID 30 days #60 tabs 06/02/24 06/16/24 06/16/24 Rx clopidogrel 75 mg tablet 75 mg PO DAILY 30 days #30 tabs 06/02/24 06/16/24 06/16/24 Rx levetiracetam 500 mg tablet 500 mg PO BID 30 days #60 tabs 06/02/24 06/16/24 06/16/24 Rx (Keppra) nitroglycerin 0.4 mg sublingual 0.4 mg sublingual Q5M PRN Chest 06/02/24 06/16/24 06/16/24 Rx tablet Pain 30 days #30 tabs Allergies Allergy/AdvReac Type Severity Reaction Status Date / Time watermelon Allergy ALGY-Swell Verified 06/16/24 11:37 Lip/Tongue/Throat PFSH Acute 2 PFSH: Medical History (Updated 01/12/25 @ 17:17 by Rosario Rivera MD) Diastolic dysfunction, left ventricle COVID-19 Non-ST elevation AR (NSTEMI) Cardiac arrest 2019 Seizure disorder CAD (coronary artery disease) Surgical History H/O shoulder surgery History of colon surgery H/O angioplasty History of appendectomy Family History Brother Diabetes Cancer Mother Stroke Denies family history of CAD (coronary artery disease) Social History Smoking and tobacco/nicotine status: current every day tobacco/nicotine user cigarettes Packs smoked per day: 0.5 Years cigarettes smoked: 45 Alcohol intake: never Substance/Drug Use: never Vitals/I&O/Wt Last Vital Signs Pulse 84 06/16/24 16:44 Resp 16 06/16/24 13:02 BP 159/80 06/16/24 16:44 Pulse Ox 97 06/16/24 16:36 O2 Del Method Room Air 06/16/24 16:36 Weight last 48 hrs Weight 102.512 kg Physical Exam 2 Narrative: General: No acute distress, AO x3 HEENT: PERRLA, pupils bilaterally equal and reactive, pallors not present Chest: Normal vesicular breath sounds, no added sounds, equal good air entry bilaterally, reproducible chest pain in third intercostal space CVS: S1-S2 regular, no murmurs, no tachycardia, no gallops, no rubs Abdomen: Soft, nontender, no organomegaly, bowel sounds present Neuro: No focal deficits, no facial deformity, AO x3, power 5/5 in all limbs Data 06/16/24 11:48 06/16/24 11:48 A&P Assessment and plan (1) Chest pain at rest: Does have history of CAD with recent stenting. Symptoms very atypical. Less likely cardiac in nature. Patient's pain is reproducible. Started after extreme bout of cough last night. Sharp in nature. Baseline troponin 16, -2 in 2 hours. CTA done in the ER negative for PE.-Continue with home dose of aspirin, beta- alexia. High concerns for musculoskeletal. Start on lidocaine patch, tramadol 50 mg every 4 hours as needed Protonix 40 mg IV daily. Cardiology consulted. Appreciate recommendations. If pain persists in a.m. will plan for possible Lexiscan stress test. Start on Robitussin 5 mL every 4 hours as needed. (2) CAD (coronary artery disease): Plan Hypertension: Goal blood pressure less than 140/90 mmHg. Blood pressure on examination slightly elevated. Patient states blood pressure at home is well- controlled. For now continue home dose of Coreg. Will uptitrate or add losartan depending on blood pressures. Continue to monitor. Type 2 diabetes mellitus: A1c of 6.1 recently. Start on sliding scale. Patient would benefit from discharge on Farxiga which will also help him with diastolic heart failure. Full code Cardiac diet Protonix for PUD prophylaxis 5000 Q12 hourly for DVT prophylaxis. Attestations 2 Medical Necessity Statement*: Admit under observation for management of chest pain at rest in a patient with recent history of CAD post PCI Diagnoses Chest pain at rest R07.9 CAD (coronary artery disease) I25.10
--- NOTE | 2024-06-16 17:26 | ECG_ITS ---
[facility]: [facility]24[facility]16 Pat Name: Kalin Alberto Department: Room: Gender: Male Clinical Laboratory Director: : 1950 Requested By: Francisco Love Order Number: [id number] Reading MD: Measurements Intervals [place] Rate: 76 P: 82 HI: 156 QRS: 47 QRSD: 86 T: 70 QT: 373 QTc: 419 Interpretive Statements SINUS RHYTHM NONSPECIFIC T-WAVE ABNORMALITY [email or web address]
[2024-06-16 18:13] LABS: Troponin 5 6HR 13.53 ng/L (0-15); Troponin 5 6HR Delta -2.47 ng/L (0-12)
[2024-06-16] MEDS: carvedilol 3.125 mg Tablet PO (18:32)
[2024-06-16] MEDS: gabapentin 300 mg Capsule PO (18:32)
[2024-06-16] MEDS: levETIRAcetam 500 mg Tablet PO (18:32)
[2024-06-16 18:44] LABS: Glucose Point of Care 191 mg/dL (70-110)
[2024-06-16] MEDS: atorvastatin 40 mg Tablet PO (20:19)
[2024-06-16] MEDS: morphine 4 mg/mL SDV 1 mL 2 MG IVP (20:19)
[2024-06-16 21:12] LABS: Glucose Point of Care 104 mg/dL (70-110)
[2024-06-16] MEDS: acetaminophen 325 mg Tablet 650 MG PO (23:12)
[2024-06-17] VITALS (8 sets, daily range): BP systolic 104–124; BP diastolic 47–64; PULSE 55–69; RESP 18–22; TEMP 36.3–36.5; O2SAT 91–97
[2024-06-17] MEDS: morphine 4 mg/mL SDV 1 mL 2 MG IVP (01:47)
[2024-06-17] MEDS: nitroglycerin 1 gm/inch oint Pkt 0.5 INCH TOPICAL (03:00)
[2024-06-17 03:32] LABS: Basophils # 0.1 10^3/uL (0.0-0.1); Basophils % 0.5 %; Eosinophils # 0.3 10^3/uL (0.0-0.8); Eosinophils % 2.5 %; Hematocrit 42.2 % (37-53); Lymphocytes # 3.2 10^3/uL (0.8-4.8); Lymphocytes % 29.7 %; Mean Corpuscular HGB Conc 32.7 g/dL (30-55); Mean Corpuscular Hemoglobin 30.5 pg (27-33); Mean Corpuscular Volume 93.4 fl (82-101); Mean Platelet Volume 9.1 fL (7.4-10.4); Monocytes # 0.9 10^3/uL (0.2-0.9); Monocytes % 8.6 %; Neutrophils # 6.31 10^3/uL (1.8-7.7); Neutrophils % 58.1 %; Nucleated Red Blood Cells % 0 %; Platelet Count 262 10^3/cmm (157-399); Red Blood Count 4.52 10^6/uL (3.85-5.65); Red Cell Distribution Width 12.4 % (12.1-15.1); White Blood Count 10.85 10^3/uL (3.29-11.43)
[2024-06-17 04:13] LABS: Alanine Aminotransferase 17 U/L (0-41); Albumin Level 3.9 g/dL (3.5-5.2); Alkaline Phosphatase 69 U/L (40-130); Anion Gap 13.3 (5-19); Aspartate Amino Transferase 15 U/L (0-40); Blood Urea Nitrogen 16 mg/dL (8-23); Calcium 9.2 mg/dL (8.5-10.5); Carbon Dioxide 28 mmol/L (22-29); Chloride 99 mmol/L (98-107); Creatinine Clr Calc Pharmacy 70.8264; Glucose 95 mg/dL (65-115); Osmolality Calculated 283 mOsm/kg (285-295); Potassium 4.3 mmol/L (3.5-5.1); Sodium 136 mmol/L (136-145); Total Bilirubin 0.5 mg/dL (0.15-1.2); Total Protein 5.9 g/dL (6.6-8.7)
[2024-06-17 04:17] LABS: Troponin T (5th) Once 13 ng/L (0-15)
[2024-06-17] MEDS: FUROsemide 40 mg Tablet PO (05:37)
[2024-06-17 06:38] LABS: Glucose Point of Care 98 mg/dL (70-110)
[2024-06-17] MEDS: ondansetron 2 mg/ML SDV 2 mL 4 MG IVP (07:39)
[2024-06-17] MEDS: levETIRAcetam 500 mg Tablet PO (08:41)
[2024-06-17] MEDS: pantoprazole 40 mg SDV IVP (08:41)
[2024-06-17] MEDS: gabapentin 300 mg Capsule PO (08:41)
[2024-06-17] MEDS: aspirin 81 mg EC Tablet PO (08:41)
[2024-06-17] MEDS: clopidogrel 75 mg Tablet PO (08:41)
[2024-06-17] MEDS: carvedilol 3.125 mg Tablet PO (08:41)
[2024-06-17] MEDS: acetaminophen 325 mg Tablet 650 MG PO (09:34)
--- NOTE | 2024-06-17 10:45 | P.PN_ITS ---
Subjective 2 Subjective: Overnight chest pain has not changed, it is reproducible with palpation on the left side of the chest, felt to be musculoskeletal in origin. He notes some cramping and pain in the right leg, pain in the right hip from laying on that side during the night. Pulses are palpable and skin pink and warm. Vitals/I&O/Wt Last Vital Signs Temp 97.7 F 06/17/24 07:58 Pulse 69 06/17/24 07:58 Resp 20 H 06/17/24 07:58 BP 124/64 06/17/24 07:58 Pulse Ox 93 06/17/24 07:58 O2 Del Method Room Air 06/17/24 07:58 06/16/24 06/17/24 06/17/24 22:59 06:59 14:59 Intake Total 360 / 360 Output Total 480 / 480 Balance -120 / -120 Weight last 48 hrs Weight 230 lb 4.8 oz Weight 235 lb 4 oz Weight 226 lb Physical Exam 2 Const: COMMON NORMALS: no acute distress and patient oriented x3 GENERAL APPEARANCE: cooperative and comfortable ORIENTATION/CONSCIOUSNESS: Yes awake, Yes oriented to person, Yes oriented to place and Yes oriented to time Chest: COMMONS NORMALS: normal inspection of the chest and normal palpation of entire chest wall CHEST: Yes Symmetrical chest wall rise Resp: COMMON NORMALS: normal respiratory effort, No retractions, No use of accessory muscles and clear to auscultation bilaterally EFFORT & INSPECTION: Yes symmetric chest movement AUSCULTATION: clear to auscultation bilaterally Cardio: COMMON NORMALS: regular rate, regular rhythm, S1 normal heart sound present, S2 normal heart sound present, No gallops present (Cardio), No clicks present (Cardio), No murmurs present (Cardio) and No rub (Cardio) RATE: r egular rate RHYTHM: regular rhythm HEART SOUNDS: S1 normal heart sound present and S2 normal heart sound present PERIPHERAL PULSES: radial pulses present Extremity: COMMON NORMALS: no pedal edema Neuro: COMMON NORMALS: patient oriented x3 and moves all extremities S ENSORIUM/ORIENTATION: Yes oriented to person, Yes oriented to place and Yes oriented to time Data 06/17/24 02:19 06/17/24 02:19 A&P Assessment and plan (1) CAD (coronary artery disease): Chest pain atypical, felt to be musculoskeletal rather than cardiac in origin. Will adjust blood pressure medication for better BP control, add on lisinopril 2.5mg daily and isosorbide mononitrate 30mg daily for chest pain. Continue carvedilol 3.125mg daily, stain, aspirin, Plavix. He appears euvolemic, continue home dose of Lasix. Ok to discharge home and follow up with cardiology clinic when acceptable with hospitalist. Qualifiers: Coronary Disease-Associated Artery/Lesion type: [place] artery [place] vs. transplanted heart: [place] heart Associated angina: without angina Qualified Code(s): I25.10 - Atherosclerotic heart disease of [place] coronary artery without angina pectoris Attestations 2 Medical Necessity Statement*: anticipate discharge home Coding Level of Care Code Acute Code for [facility] Diagnoses Coronary artery disease involving [place] coronary artery of [place] heart without angina pectoris I25.10 Coronary Disease-Associated Artery/Lesion type: [place] artery [place] vs. transplanted heart: [place] heart Associated angina: without angina
[2024-06-17 11:43] LABS: Glucose Point of Care 129 mg/dL (70-110)
--- NOTE | 2024-06-17 12:18 | PM.DCS ---
Discharge Providers Date of Admission: 06/16/24 12:45 Date of Discharge: June 17, 2024 Attending Provider at Admission: Rosario Rivera MD Attending Provider at Discharge: Silvia Waters MD Primary Care Provider: Pete Pandey Diagnoses at Discharge Discharge Diagnosis (1) CAD (coronary artery disease): Status: Acute Qualifiers: Associated angina: without angina Coronary Disease-Associated Artery/Lesion type: redding artery [place] vs. transplanted heart: redding heart Qualified Code(s): I25.10 - Atherosclerotic heart disease of redding coronary artery without angina pectoris Reason for Visit Reason for Visit: chest pain Hospital Course Hospital Course Presented to the hospital with chest pain which was atypical and reproducible to palpation. Cardiology was consulted from the ER. Patient's chest pain was thought to be musculoskeletal in nature. He was more concerned regarding his cramp in right calf rather than the chest pain when seen by administrative underwriter day 2. CK was normal. Dopplers ruled out DVT. Patient states that he does have spasms which she has been having for years. He has also tried gabapentin as an outpatient. Patient was discharged home on and to follow-up with cardiology as an outpatient. Physical Exam Narrative: General: No acute distress, AO x3 HEENT: PERRLA, pupils bilaterally equal and reactive, pallors not present Chest: Normal vesicular breath sounds, no added sounds, equal good air entry bilaterally, reproducible chest pain in third intercostal space CVS: S1-S2 regular, no murmurs, no tachycardia, no gallops, no rubs Abdomen: Soft, nontender, no organomegaly, bowel sounds present Neuro: No focal deficits, no facial deformity, AO x3, power 5/5 in all limbs Discharge Data Studies Completed and Pending Completed Studies During Hospitalization Category Date Time Status CT angio chest PE protcl [id number] Stat Cat Scan 06/16/24 12:43 Completed XR chest 1V portable [id number] Stat Exams 06/16/24 11:37 Completed US venous duplex lower extremity RT [CV venous duplex Ultrasound 06/16/24 12:[place] [id number]] Stat Radiology Impressions Chest X-Ray 06/16/24 11:37 IMPRESSION: Essentially stable bibasilar interstitial opacities may represent atelectasis and/or pulmonary edema. Superimposed infectious or inflammatory infiltrate is not entirely excluded. Chest CTA 06/16/24 12:43 IMPRESSION: 1. No pulmonary embolism. 2. Moderate coronary calcifications predominantly along the LAD . Venous Duplex 06/16/24 12:48 IMPRESSION: No evidence of deep vein thrombosis. Laboratory Results WBC 10.85 10^3/uL (3.29-11.43) 06/17/24 02:19 RBC 4.52 10^6/uL (3.85-5.65) 06/17/24 02:19 Hgb 13.80 g/dL (11.27-16.99) 06/17/24 02:19 Hct 42.2 % (37-53) 06/17/24 02:19 MCV 93.4 fl (82-101) 06/17/24 02:19 MCH 30.5 pg (27-33) 06/17/24 02:19 MCHC 32.7 g/dL (30-55) 06/17/24 02:19 RDW 12.4 % (12.1-15.1) 06/17/24 02:19 Plt Count 262 10^3/cmm (157-399) 06/17/24 02:19 MPV 9.1 fL (7.4-10.4) 06/17/24 02:19 Neut % (Auto) 58.1 % 06/17/24 02:19 Lymph % (Auto) 29.7 % 06/17/24 02:19 [place] % (Auto) 8.6 % 06/17/24 02:19 Eos % (Auto) 2.5 % 06/17/24 02:19 Baso % (Auto) 0.5 % 06/17/24 02:19 Neut # (Auto) 6.31 10^3/uL (1.8-7.7) 06/17/24 02:19 Lymph # (Auto) 3.2 10^3/uL (0.8-4.8) 06/17/24 02:19 [place] # (Auto) 0.9 10^3/uL (0.2-0.9) 06/17/24 02:19 Eos # (Auto) 0.3 10^3/uL (0.0-0.8) 06/17/24 02:19 Baso # (Auto) 0.1 10^3/uL (0.0-0.1) 06/17/24 02:19 Nucleated RBC % (auto) 0 % 06/17/24 02:19 Nucleated RBCs # 0.0 /100WBC 06/17/24 02:19 Sodium 136 mmol/L (136-145) 06/17/24 02:19 Potassium 4.3 mmol/L (3.5-5.1) 06/17/24 02:19 Chloride 99 mmol/L (98-107) 06/17/24 02:19 Carbon Dioxide 28 mmol/L (22-29) 06/17/24 02:19 Anion Gap 13.3 (5-19) 06/17/24 02:19 BUN 16 mg/dL (8-23) 06/17/24 02:19 Creatinine 1.1 mg/dL (0.7-1.2) 06/17/24 02:19 GFR Calculation Not Reportable 06/17/24 02:19 Glucose 95 mg/dL (65-115) 06/17/24 02:19 POC Glucose 129 mg/dL (70-110) H 06/17/24 11:37 Calculated Osmolality 283 mOsm/kg (285-295) L 06/17/24 02:19 Calcium 9.2 mg/dL (8.5-10.5) 06/17/24 02:19 Total Bilirubin 0.5 mg/dL (0.15-1.2) 06/17/24 02:19 AST 15 U/L (0-40) 06/17/24 02:19 ALT 17 U/L (0-41) 06/17/24 02:19 Alkaline Phosphatase 69 U/L (40-130) 06/17/24 02:19 Troponin T 5th Gen ng/L 13 ng/L (0-15) 06/17/24 02:19 Troponin T Baseline 16 ng/L (0-15) H 06/16/24 11:48 Troponin T 120 Minute 14.48 ng/L (0-15) 06/16/24 13:35 Delta Troponin T -1.52 ABS# (0-10) L 06/16/24 13:35 Troponin T Hi Sens 6Hr 13.53 ng/L (0-15) 06/16/24 17:49 Troponin T Hi Sens 6Hr Delta -2.47 ng/L (0-12) L 06/16/24 17:49 Total Protein 5.9 g/dL (6.6-8.7) L 06/17/24 02:19 Albumin 3.9 g/dL (3.5-5.2) 06/17/24 02:19 Globulin 2.0 g/dL (1.3-4.6) 06/17/24 02:19 SARS-CoV-2 Ag (Rapid) negative (Negative) 06/16/24 15:52 Vitals Last Vital Signs Temp 97.6 F 06/17/24 11:38 Pulse 69 06/17/24 11:38 Resp 22 H 06/17/24 11:38 BP 104/55 06/17/24 11:38 Pulse Ox 97 06/17/24 11:38 O2 Del Method Room Air 06/17/24 11:38 Discharge Plan Discharge Patient Disposition: Home Condition: Stable Prescriptions: New dapagliflozin propanediol [Farxiga] 10 mg tablet 10 mg PO DAILY Qty: 30 0RF isosorbide mononitrate 30 mg Tablet Extended Release 24 Hr 30 mg PO DAILY Qty: 30 0RF Continued albuterol sulfate 90 mcg/actuation HFA aerosol inhaler 2 puff inhalation Q6H PRN (Reason: Shortness Of Breath) fluticasone furoate-vilanterol [Breo Ellipta] 100-25 mcg/dose blister with device 1 inh inhalation DAILY furosemide 40 mg tablet 40 mg PO QAM gabapentin 300 mg capsule 300 mg PO BID ipratropium-albuterol 0.5 mg-3 mg(2.5 mg base)/3 mL solution for nebulization 3 ml inhalation Q6H PRN (Reason: Shortness Of Breath) potassium chloride 10 mEq capsule, extended release 10 meq PO DAILY atorvastatin 40 mg Tablet 40 mg PO BEDTIME 30 Days Qty: 30 0RF clopidogrel 75 mg Tablet 75 mg PO DAILY 30 Days Qty: 30 0RF aspirin 81 mg Tablet,Delayed Release (Dr/Ec) 81 mg PO DAILY 30 Days Qty: 30 0RF carvedilol 3.125 mg Tablet 3.125 mg PO BID 30 Days Qty: 60 0RF nitroglycerin 0.4 mg Tablet, Sublingual 0.4 mg sublingual Q5M PRN (Reason: Chest Pain) 30 Days Qty: 30 0RF levetiracetam [Keppra] 500 mg tablet 500 mg PO BID 30 Days Qty: 60 0RF Discharge Orders: Discharge Order (Routine); Ordered 06/17/24 Ordered By: Silvia Waters Referrals: Pete Pandey [Primary Care Provider] - 06/21/24 1:15 pm (The clinic is currently closed, please call to schedule an follow-up appointment within 4 to 7 days. Thank you.) Clarissa Ferrara FNP [Nurse Practitioner] - 06/26/24 2:00 pm Discharge Diet: Cardiac Discharge Activity: Resume usual activity Patient Instructions: Type 2 Diabetes, Diabetes and Diet, Isosorbide Mononitrate (By mouth) (Imdur, Imdur ER, Ismo), Dapagliflozin (By mouth) (Farxiga), Coronary Artery Disease (DC), Chest Pain (DC), Non-pharmacological Pain Management Therapies for Adults (GEN), Chest Pain Stoplight, Opioid Safety Activity Restrictions/Additional Instructions: Check your blood sugar levels and blood pressures at home twice a day. Keep a log of them and carry them with you to your next follow up appointments with your pcp and platen grinder. Apply some warm compress on your right leg to help with the pain. Discharge Attestations Time Spent in Discharge Care*: greater than 30 min Quality Metrics Clinical Quality Measures [ No reported AMI, CVA or VTE this stay] Coding Level of Care Code Acute Code for [facility] Fwd Diagnoses Coronary artery disease involving redding coronary artery of redding heart without angina pectoris I25.10 Associated angina: without angina Coronary Disease-Associated Artery/Lesion type: redding artery [place] vs. transplanted heart: redding heart
[2024-06-17 13:33] LABS: Creatine Phosphokinase 61 U/L (39-308)
== END 2024-06-17 15:08 | disposition home or self-care (01) ==
LOC: ER 12:52 → ER IP 14:49 → CSU 17:50
PROVIDERS: Student in an Organized Health Care Education/Training Program; Admitting Provider Student in an Organized Health Care Education/Training Program; Emergency Provider Emergency Medicine; PCP Family Medicine; Visit Provider Internal Medicine
DX: M79.662 Pain in left lower leg (principal); I25.10 Atherosclerotic heart disease of native coronary artery without angina pectoris; R25.2 Cramp and spasm; Z79.82 Long term (current) use of aspirin; I25.2 Old myocardial infarction; Z86.16 Personal history of COVID-19; F17.210 Nicotine dependence, cigarettes, uncomplicated; Z95.5 Presence of coronary angioplasty implant and graft
CPT/HCPCS: 36415; 36416; 71045; 71275; 80053; 82550; 82962; 84484; 85025; 87426; 93005; 93971; 96372; 96374; 96375; 99285; G0378; J1815; J2270; J2405; J2470

== ENCOUNTER → 2024-06-26 13:40 | Outpatient (BNVA) | payer MEDICARE, OTHER, SELFPAY | PROVIDERS: PCP Family Medicine; Visit Provider Nurse Practitioner Family | DX: I25.10 Atherosclerotic heart disease of native coronary artery without angina pectoris (principal); R07.9 Chest pain, unspecified; I51.9 Heart disease, unspecified; F17.210 Nicotine dependence, cigarettes, uncomplicated | CPT/HCPCS: 99213 ==

== ENCOUNTER → 2024-07-09 13:55 | Outpatient (BNVA) | payer MEDICARE, OTHER, SELFPAY | PROVIDERS: PCP Family Medicine; Referring Provider Psychiatry & Neurology Neurology; Visit Provider Psychiatry & Neurology Neurology | DX: R55 Syncope and collapse (principal); R56.9 Unspecified convulsions | CPT/HCPCS: 95813 ==

== ENCOUNTER 2024-08-19 14:52 | Outpatient (CLI) | payer MEDICARE, OTHER, SELFPAY | END 2024-08-19 14:53 | disposition home or self-care (01) | LOC: SLEEP 14:53 | PROVIDERS: PCP Family Medicine; Visit Provider Nurse Practitioner Family | DX: G47.33 Obstructive sleep apnea (adult) (pediatric) (principal) | CPT/HCPCS: G0399 ==

== ENCOUNTER → 2024-09-11 14:31 | Outpatient (BNVA) | payer MEDICARE, OTHER, SELFPAY | PROVIDERS: PCP Nurse Practitioner Family; Visit Provider Psychiatry & Neurology Neurology | DX: R56.9 Unspecified convulsions (principal); G45.9 Transient cerebral ischemic attack, unspecified; G62.9 Polyneuropathy, unspecified; I99.8 Other disorder of circulatory system; R25.1 Tremor, unspecified; R55 Syncope and collapse; R51.9 Headache, unspecified; M79.641 Pain in right hand; M79.642 Pain in left hand; R25.2 Cramp and spasm | CPT/HCPCS: 99212 ==

== ENCOUNTER → 2024-09-17 15:48 | Outpatient (BNVA) | payer MEDICARE, OTHER, SELFPAY | PROVIDERS: PCP Nurse Practitioner Family; Visit Provider Internal Medicine Cardiovascular Disease | DX: I25.10 Atherosclerotic heart disease of native coronary artery without angina pectoris (principal); I51.9 Heart disease, unspecified; Z72.0 Tobacco use; R60.9 Edema, unspecified; E78.5 Hyperlipidemia, unspecified | CPT/HCPCS: 99214 ==

== ENCOUNTER → 2024-09-25 13:08 | Outpatient (BNVA) | payer MEDICARE, OTHER, SELFPAY | PROVIDERS: PCP Nurse Practitioner Family; Referring Provider Psychiatry & Neurology Neurology; Visit Provider Psychiatry & Neurology Neurology | DX: R25.2 Cramp and spasm (principal); M79.641 Pain in right hand; M79.642 Pain in left hand | CPT/HCPCS: 95912; 95913 ==

== ENCOUNTER → 2024-10-04 09:39 | Outpatient (BNVA) | payer MEDICARE, OTHER, SELFPAY | PROVIDERS: PCP Nurse Practitioner Family; Visit Provider Physician Assistant | DX: M79.641 Pain in right hand (principal); M79.642 Pain in left hand; G56.03 Carpal tunnel syndrome, bilateral upper limbs; G56.23 Lesion of ulnar nerve, bilateral upper limbs | CPT/HCPCS: 73110; 99204 ==

== ENCOUNTER → 2024-11-15 08:34 | Outpatient (BNVA) | payer MEDICARE, OTHER, SELFPAY | PROVIDERS: PCP Family Medicine; Visit Provider Physician Assistant | DX: G56.01 Carpal tunnel syndrome, right upper limb (principal); G56.21 Lesion of ulnar nerve, right upper limb | CPT/HCPCS: 99214 ==

== ENCOUNTER → 2024-11-21 13:28 | Outpatient (BNVA) | payer MEDICARE, OTHER, SELFPAY | PROVIDERS: PCP Family Medicine; Visit Provider Physician Assistant | DX: M25.561 Pain in right knee (principal); M25.562 Pain in left knee; M17.12 Unilateral primary osteoarthritis, left knee | CPT/HCPCS: 73560; 73565 ==

== ENCOUNTER 2024-11-21 14:48 | Outpatient (CLI) | payer MEDICARE, OTHER, SELFPAY | END 2024-11-21 14:49 | disposition home or self-care (01) | LOC: SPT 14:50 | PROVIDERS: PCP Family Medicine; Visit Provider Physician Assistant | DX: Z46.89 Encounter for fitting and adjustment of other specified devices (principal); M17.12 Unilateral primary osteoarthritis, left knee | CPT/HCPCS: 20610; J3301; J9999; L1851 ==

== ENCOUNTER → 2024-12-31 14:05 | Outpatient (BNVA) | payer MEDICARE, OTHER, SELFPAY | PROVIDERS: PCP Family Medicine; Visit Provider Podiatrist Foot & Ankle Surgery | DX: I73.9 Peripheral vascular disease, unspecified (principal); L60.3 Nail dystrophy; G60.9 Hereditary and idiopathic neuropathy, unspecified | CPT/HCPCS: 11721; 99203 ==

== ENCOUNTER → 2025-01-09 06:00 | Day surgery (SDC) | payer MEDICARE, OTHER, SELFPAY | LOC: OR 04-03 15:57 | PROVIDERS: PCP Family Medicine; Visit Provider Student in an Organized Health Care Education/Training Program | DX: I49.8 Other specified cardiac arrhythmias (principal) | CPT/HCPCS: 93005 ==

== ENCOUNTER 2025-01-16 05:39 | Day surgery (SDC) | payer MEDICARE, OTHER, SELFPAY ==
--- NOTE | 2025-01-09 11:12 | ECG_ITS ---
[facility] Test Date: 2025-01-09 Pat Name: Kalin Alberto Department: Room: Gender: Male Resolute Professional: : 1950 Requested By: Sadaf Hutchison Order Number: [id number] Reading MD: NORBERT LOVETT Measurements Intervals [place] Rate: 63 P: 73 VA: 160 QRS: 53 QRSD: 82 T: 89 QT: 378 QTc: 389 Interpretive Statements SINUS RHYTHM WITH SINUS ARRHYTHMIA MINIMAL ST DEPRESSION [0.025+ mV ST DEPRESSION] Compared to ECG 06/16/2024 17:26:49 ST (T wave) deviation now present T-wave abnormality no longer present Electronically Signed On 01-14-2025 18:51:42 CDT by NORBERT LOVETT [email or web address]
--- NOTE | 2025-01-09 12:03 | ANES.PREANE2 ---
Pre-Anesthetic Assessment Height/Weight: Height 1.73 m Operation Date: 01/16/25 11:25 Proposed Procedures p RIGHT Carpal Tunnel Release(Right) - Basil Sevier, DO s RIGHT Cubital Tunnel Release(Right) - Basil Wenceslao, DO s RIGHT Ulnar Nerve Transposition(Right) - Basil Wenceslao, DO Familial anesthetic complications: Patient has stated in the past after a shoulder surgery he was overdosed in the PACU while they were trying to fix his breathing and required CPR. his surgery was postponed to allow for medical records regarding this event to be obained and reviewed. Medical records obtained from [facility] where he was transferred to after the surgery state that the patient awoke from the operation with significant wheezing and he required mucomyst and ipratropium bromide, which induced a syncopal event. He was transferred via ambulance [facility], where he did well and was discharged after cardiac work up and ct head and lab work. Was Beta Akanksha taken within 24 hours: N/A Was Clonidine taken within 24 hours: N/A Social No alcohol and No tobacco Exam alert, oriented x 3, clear to auscultation bilaterally and regular rate & rhythm CV/HEM Coronary Artery Disease (stents in May of 2024 - he is to continue plavix perioperatively) and Peripheral Vascular Disease GI Gastroesophageal Reflux Disease Metabolic Hyperlipidemia and Morbid Obesity Anesthetic Plan ASA status: 4 Anesthesia: General Other: Reigonal post op prn, avoid mucomyst and ipratroprium bromide. Patient educated on risks he may potentially develop respiratory complications again from surgery and intubation, possible icu. He understands and would like to proceed Risk of > 500 ml blood loss (7ml/kg in children): No Medications/Allergies Home Medications ?Medication ?Instructions ?Recorded ?Confirmed ?Last Taken ?Type gabapentin 300 mg capsule 300 mg PO BID 05/14/24 01/09/25 01/09/25 History ipratropium 0.5 mg-albuterol 3 mg 3 ml inhalation Q6H PRN Shortness 05/14/24 01/09/25 06/16/24 History (2.5 mg base)/3 mL nebulization Of Breath soln albuterol sulfate 90 mcg/actuation 2 puff inhalation Q6H PRN 05/22/24 01/09/25 01/09/25 History aerosol inhaler Shortness Of Breath atorvastatin 40 mg tablet 40 mg PO BEDTIME 30 days #90 tabs 06/26/24 01/09/25 01/09/25 Rx clopidogrel 75 mg tablet 75 mg PO DAILY #90 tabs 06/26/24 01/09/25 01/09/25 Rx furosemide 40 mg tablet 40 mg PO QAM #90 tabs 06/26/24 01/09/25 01/09/25 Rx potassium chloride 10 mEq 10 meq PO DAILY #90 caps 06/26/24 01/09/25 01/09/25 Rx capsule,extended release aspirin 81 mg tablet,delayed 81 mg PO DAILY 09/11/24 01/09/25 01/09/25 History release (Adult Aspirin Regimen) omeprazole 20 mg capsule,delayed 20 mg PO DAILY PRN Acid Reflux 09/11/24 01/09/25 Unknown History release acetaminophen 650 mg 650 mg PO Q12H 10/22/24 01/09/25 01/06/25 History tablet,extended release (Tylenol Arthritis Pain) calcium carbonate (Antacid Ext Str 300 mg PO BID 10/22/24 01/09/25 Unknown History (calcium carb)) fluticasone propionate 50 1 spray intranasal DAILY 10/22/24 01/09/25 Unknown History mcg/actuation nasal spray,suspension (Allergy Relief (fluticasone)) magnesium 200 mg tablet 200 mg PO DAILY 10/22/24 01/09/25 01/09/25 History Left Knee Medial Identification And Records Commander Brace #1 ea 11/21/24 12/31/24 Unknown Rx cetirizine 10 mg tablet (All Day 10 mg PO DAILY 12/31/24 01/09/25 01/09/25 History Allergy (cetirizine)) Allergies Allergy/AdvReac Type Severity Reaction Status Date / Time watermelon Allergy WILLIAMYasmani-Lynll Verified 12/31/24 14:07 Lip/Tongue/Throat [facility] Anesthesia Medical History (Updated 01/04/25 @ 12:45 by Zan Cordoba DPM) Diastolic dysfunction, left ventricle COVID-19 Non-ST elevation [place] (NSTEMI) Cardiac arrest 2020 Seizure disorder CAD (coronary artery disease) Surgical History H/O shoulder surgery History of colon surgery H/O angioplasty History of appendectomy Family History Brother Diabetes Cancer Mother Stroke Denies family history of CAD (coronary artery disease) Social History Smoking and tobacco/nicotine status: current every day tobacco/nicotine user cigarettes Packs smoked per day: 0.5 Years cigarettes smoked: 45 Alcohol intake: never Substance/Drug Use: never Data Anesthesia Cardiac Studies: Echocardiogram 06/01/24
[2025-01-09 14:37] LABS: Hematocrit 46.4 % (37-53); Hemoglobin 15.60 g/dL (11.27-16.99); Mean Corpuscular HGB Conc 33.6 g/dL (30-55); Mean Corpuscular Hemoglobin 30.2 pg (27-33); Mean Corpuscular Volume 89.7 fl (82-101); Nucleated Red Blood Cells % 0 %; Platelet Count 253 10^3/cmm (157-399); Red Blood Count 5.17 10^6/uL (3.85-5.65); White Blood Count 10.33 10^3/uL (3.29-11.43)
[2025-01-09 14:55] LABS: Anion Gap 16.0 (5-19); Blood Urea Nitrogen 18 mg/dL (8-23); Calcium 9.2 mg/dL (8.5-10.5); Carbon Dioxide 25 mmol/L (22-29); Chloride 101 mmol/L (98-107); Glucose 85 mg/dL (65-115); Osmolality Calculated 287 mOsm/kg (285-295); Potassium 4.0 mmol/L (3.5-5.1); Sodium 138 mmol/L (136-145)
[2025-01-16] VITALS (11 sets, daily range): BP systolic 125–149; BP diastolic 77–96; PULSE 71–79; RESP 15–19; TEMP 36.2–36.4; O2SAT 93–99
--- NOTE | 2025-01-16 05:58 | ANES.PREANE2 ---
Pre-Anesthetic Assessment Height/Weight: Height 5 ft 8 in Preop Diagnosis: Cubital tunnel syndrome Operation Date: 01/16/25 07:00 Proposed Procedures p RIGHT Carpal Tunnel Release(Right) - Basil Wenceslao, DO s RIGHT Cubital Tunnel Release(Right) - Basil Wenceslao, DO s RIGHT Ulnar Nerve Transposition(Right) - Basil Wenceslao, DO Was Beta Akanksha taken within 24 hours: N/A Was Clonidine taken within 24 hours: N/A Social Tobacco and No alcohol Exam alert, oriented x 3 and regular rate & rhythm Airway Submandibular: Other (Large neck circumference) Cervical ROM: within normal limits Mallampati: Class IV Dentition: false Comments: Comments: Small mouth opening with dentures in Anesthetic Plan ASA status: 4 Anesthesia: General Other: Patient states that he was overdosed in recovery following a shoulder surgery. States that he and had to have cardiac arrest Records from [facility] states that patient woke up with significant wheezing and required Mucomyst and ipratropium bromide which induced a syncopal event. NPO since yesterday evening History of GERD, controlled with omeprazole CAD history, s/p PCI May 2024. Plavix last taken yesterday Prior seizures but he has not had a seizure since he had his stents placed. Labs reviewed 01/09/2025 and acceptable for procedure EKG sinus rhythm with sinus arrhythmia Plan for general anesthesia, no PNB due to recent Plavix Will avoid Mucomyst and ipratropium bromide. Medications/Allergies Home Medications ?Medication ?Instructions ?Recorded ?Confirmed ?Last Taken ?Type gabapentin 300 mg capsule 300 mg PO BID 05/14/24 01/16/25 01/09/25 History ipratropium 0.5 mg-albuterol 3 mg 3 ml inhalation Q6H PRN Shortness 05/14/24 01/16/25 01/16/25 History (2.5 mg base)/3 mL nebulization Of Breath soln albuterol sulfate 90 mcg/actuation 2 puff inhalation Q6H PRN 05/22/24 01/16/25 01/16/25 History aerosol inhaler Shortness Of Breath atorvastatin 40 mg tablet 40 mg PO BEDTIME 30 days #90 tabs 06/26/24 01/16/25 01/09/25 Rx clopidogrel 75 mg tablet 75 mg PO DAILY #90 tabs 06/26/24 01/16/2525 Rx furosemide 40 mg tablet 40 mg PO QAM #90 tabs 06/26/24 01/16/25 01/09/25 Rx potassium chloride 10 mEq 10 meq PO DAILY #90 caps 06/26/24 01/16/25 01/09/25 Rx capsule,extended release aspirin 81 mg tablet,delayed 81 mg PO DAILY 09/11/24 01/16/25 01/09/25 History release (Adult Aspirin Regimen) omeprazole 20 mg capsule,delayed 20 mg PO DAILY PRN Acid Reflux 09/11/24 01/16/25 Unknown History release acetaminophen 650 mg 650 mg PO Q12H 10/22/24 01/16/25 01/06/25 History tablet,extended release (Tylenol Arthritis Pain) calcium carbonate (Antacid Ext Str 300 mg PO BID 10/22/24 01/16/25 Unknown History (calcium carb)) fluticasone propionate 50 1 spray intranasal DAILY 10/22/24 01/16/25 Unknown History mcg/actuation nasal spray,suspension (Allergy Relief (fluticasone)) magnesium 200 mg tablet 200 mg PO DAILY 10/22/24 01/16/25 01/09/25 History Left Knee Medial Cutting And Boning Supervisor Brace #1 ea 11/21/24 01/16/25 Unknown Rx cetirizine 10 mg tablet (All Day 10 mg PO DAILY 12/31/24 01/16/25 01/09/25 History Allergy (cetirizine)) Allergies Allergy/AdvReac Type Severity Reaction Status Date / Time watermelon Allergy ZACARIAS-Lynll Verified 12/31/24 14:07 Lip/Tongue/Throat [facility] Anesthesia Medical History (Updated 01/04/25 @ 12:45 by Zan Cordoba DPM) Diastolic dysfunction, left ventricle COVID-19 Non-ST elevation [place] (NSTEMI) Cardiac arrest 2020 Seizure disorder CAD (coronary artery disease) Surgical History H/O shoulder surgery History of colon surgery H/O angioplasty History of appendectomy Family History Brother Diabetes Cancer Mother Stroke Denies family history of CAD (coronary artery disease) Social History Smoking and tobacco/nicotine status: current every day tobacco/nicotine user cigarettes Packs smoked per day: 0.5 Years cigarettes smoked: 45 Alcohol intake: never Substance/Drug Use: never Data Anesthesia 01/09/25 10:55 01/09/25 10:55 Cardiac Studies: Echocardiogram 06/01/24
[2025-01-16] MEDS: acetaminophen 1,000 MG/100 ML PIGGYBACK 400 MG IV (06:21)
--- NOTE | 2025-01-16 06:53 | W.PM.OPSFHP ---
Same Day Surgery H&P Indication for Procedure/HPI DATE OF PROCEDURE: January 16, 2025 CHIEF COMPLAINT/INDICATIONFOR SURGICAL PROCEDURE: Right carpal tunnel syndrome, right cubital tunnel syndrome PREOP DIAGNOSIS: Right carpal tunnel syndrome, right cubital tunnel syndrome PLANNED PROCEDURE: Operation Date: 01/16/25 07:00 Proposed Procedures p RIGHT Carpal Tunnel Release(Right) - Basil Wenceslao, DO s RIGHT Cubital Tunnel Release(Right) - Basil Wenceslao, DO s RIGHT Ulnar Nerve Transposition(Right) - Basil Wenceslao, DO Medications/Allergies* Home Medications ?Medication ?Instructions ?Recorded ?Confirmed ?Type gabapentin 300 mg capsule 300 mg PO BID 05/14/24 01/16/25 History ipratropium 0.5 mg-albuterol 3 mg 3 ml inhalation Q6H PRN Shortness 05/14/24 01/16/25 History (2.5 mg base)/3 mL nebulization Of Breath soln albuterol sulfate 90 mcg/actuation 2 puff inhalation Q6H PRN 05/22/24 01/16/25 History aerosol inhaler Shortness Of Breath aspirin 81 mg tablet,delayed 81 mg PO DAILY 09/11/24 01/16/25 History release (Adult Aspirin Regimen) omeprazole 20 mg capsule,delayed 20 mg PO DAILY PRN Acid Reflux 09/11/24 01/16/25 History release acetaminophen 650 mg 650 mg PO Q12H 10/22/24 01/16/25 History tablet,extended release (Tylenol Arthritis Pain) calcium carbonate (Antacid Ext Str 300 mg PO BID 10/22/24 01/16/25 History (calcium carb)) fluticasone propionate 50 1 spray intranasal DAILY 10/22/24 01/16/25 History mcg/actuation nasal spray,suspension (Allergy Relief (fluticasone)) magnesium 200 mg tablet 200 mg PO DAILY 10/22/24 01/16/25 History cetirizine 10 mg tablet (All Day 10 mg PO DAILY 12/31/24 01/16/25 History Allergy (cetirizine)) Allergies/Adverse Reactions Allergy/AdvReac Type Severity Reaction Status Date / Time watermelon Allergy ALGY-Swell Verified 12/31/24 14:07 Lip/Tongue/Throat Current Medications: Generic Name Dose Route Start Last Admin Trade Name Freq PRN Reason Stop Dose Admin Sodium Chloride 1,000 mls @ 30 mls/hr 01/16/25 06:00 01/16/25 06:20 Sodium Chloride 0.9% IV 01/17/25 05:59 30 mls/hr .Q24H PEEWEE Administration Pertinent History/Comorbid Conditions* Medical History (Updated 01/04/25 @ 12:45 by Zan Cordoba DPM) Diastolic dysfunction, left ventricle COVID-19 Non-ST elevation [place] (NSTEMI) Cardiac arrest 2019 Seizure disorder CAD (coronary artery disease) Surgical History (Updated 05/31/24 @ 15:27 by Piyush Lopez DO) H/O shoulder surgery History of colon surgery H/O angioplasty History of appendectomy Family History (Updated 05/22/24 @ 11:11 by Miriam Kam LPN) Diabetes Brother Cancer Brother Stroke Mother Denies family history of CAD (coronary artery disease) Social History Smoking and tobacco/nicotine status: current every day tobacco/nicotine user cigarettes Packs smoked per day: 0.5 Years cigarettes smoked: 45 Alcohol intake: never Substance/Drug Use: never Pertinent Exam Findings alert, oriented x 3, operative site marked and procedure specific exam findings Examination today demonstrates patient has positive Tinel's over the carpal tunnel and cubital tunnel negative Tinel's over Guyon's canal with positive median nerve compression test over the carpal tunnel as well with mild appreciable thenar atrophy appreciated Please refer to detailed orthopedic examination on 11/15/2024 listed below: right Hand exam-positive Tinel's and positive Phalen's test. thenar atrophy and no thenar muscle weakness. Full range of motion in fingers and wrist and fingers are warm and well-perfused with normal cap refill under 2 seconds. Radial pulse 2+, intrinsic muscle weakness noted Right Elbow exam-positive Tinel's test Recommendations Risks and benefits of procedure reviewed and Patient/family agree to proceed Surgery/Procedure today Other Plans: Plan to proceed to the OR today for right carpal tunnel release, right cubital tunnel release with possible nerve transposition. Patient understands and agrees with current plan. All questions answered. He understands the ins and outs procedure the risk benefits complication alternatives surgery and through shared decision making lets proceed with surgical intervention today. At this point in time given this being a hand procedure and using a tourniquet he is okay has been on his dual antiplatelet therapy per recommendations by the preoperative team. At this point in time he also has been seen evaluated by anesthesia and has a plan of proceeding forward with anesthesia today. At this point time patient is ready to proceed with surgical intervention all questions answered at this time. Coding Level of Care Code Acute Code for [facility] Fwd
[2025-01-16] MEDS: ceFAZolin 2,000 MG in sodium chloride 0.9% (plus) 50 ML 100 MG IV (06:58)
[2025-01-16] MEDS: ROPivacaine 0.5% SDV 30 mL 50 MG INJECTION (07:27)
[2025-01-16] MEDS: lidocaine-epi 1% 20 mL INJ 10 ML INJECTION (07:33)
--- NOTE | 2025-01-16 07:56 | PM.OP ---
Operative Report Date of procedure: January 16, 2025 Surgeon: Basil Billy DO Welder Boilermaker: Ronal Billy PA-C: PA was necessary for assistance in this case with hand positioning to execute the procedure, retraction and protection of neurovascular structures as well as to assist with wound closure and dressing application. Procedure: Preop Dx Right carpal tunnel syndrome Right cubital tunnel syndorme Postop Diagnosis: Same Procedure done: Right carpal tunnel release Right?cubital tunnel tunnel release (ulnar nerve decompression at elbow) Surgeon: Basil Billy DO Estimated blood loss: 10 mL Tourniquet? 20 minutes IV fluids: 500 mL Complications: None Findings: See operative report narrative Condition: stable Disposition: same day Brief History: Patient's been seen and worked up in the outpatient setting and findings consistent with preoperative diagnosis.? Patient has right carpal tunnel syndrome as well as right?cubital tunnel syndrome which has been worked up in the outpatient setting has physical exam findings consistent with this as well as confirmatory nerve conduction/EMG nerve conduction study consistent with diagnosis.? Patient's failed conservative treatment.? As result through shared decision making agreed to proceed with? right carpal tunnel and right?cubital tunnel release with possible ulnar nerve transposition we talked about treatment options as far as nonoperative and operative intervention.? Understands risk benefits complication alternatives surgical nonsurgical treatment options.? Understanding his risks he agrees to proceed with surgical intervention. Understanding these risks he agrees to proceed with surgery.? Consent obtained in preop. Procedure: Patient seen evaluate in the preoperative holding area.? Consent was reviewed and signed with patient.? Correct extremity marked.? Patient seen evaluated by anesthesia department once cleared for surgery was then taken back to the operative suite placed in supine position all bony prominences well-padded patient properly secured to bed.? right upper extremity placed onto armboard.? Nonsterile tourniquet applied right upper arm.? Patient then underwent anesthesia per the anesthesia department.? Patient's right upper extremity was then prepped and draped in standard orthopedic fashion.? Final timeout performed.? Patient received appropriate preoperative antibiotics. Esmarch was used exsanguinate the right upper extremity.? Tourniquet was insufflated to 250 mmHg. I started with the carpal tunnel release first.? I made a standard open carpal tunnel release starting with the distal most extent in the palm at the Dukes's cardinal line and the incision line was made in line with the fourth ray and ended just distal to the wrist crease.? Sharp scalpel incision was made through skin and subcutaneous tissue I then utilizing self retainer then began to dissect with dissection scissors split longitudinally the palmar fascia.? Next I then utilizing my web press operator assistant Felicia retractors subsequently utilizing scalpel feathered through the palmaris brevis as well as through the transverse carpal ligament distally.? Once I encountered the floor of the transverse carpal ligament and entered into the carpal tunnel I then switched to dissection scissors.? Carefully released the distal extent of the transverse carpal ligament to the palmar fat.? Care was to protect the recurrent branch and not injured this during this part of the case.? Next I then placed a [place] underneath the transverse carpal ligament proximally to protect the nerve in the carpal tunnel contents.? And then I subsequently under loupe magnification utilize my dissection scissors to release the transverse carpal ligament into the antebrachial fascia under direct visualization with care to keep my scissors with a curved ulnarly away from the palmar cutaneous branch.? The transverse carpal was then completely decompressed proximally and a [place] was then placed both distally and proximally throughout the carpal tunnel and had complete decompression of the nerve.? The nerve did appear to have hourglass shape as it went through the carpal tunnel.? With significant irritation noted around the nerve.? No masses were noted within the contents of the carpal tunnel.? This completed the carpal tunnel release and then I subsequently irrigated the wound bed and placed a wet Ray-Jitendra into the incision for later closure. Next marked out the landmarks of the right elbow of the medial epicondyle and olecranon and made a curvilinear incision following the course of the ulnar nerve at the medial aspect of the elbow.? Sharp scalpel incision was made through skin and subcutaneous tissue.? Next I switched to Littler dissection scissors and spread in plane of the medial antebrachial cutaneous nerve branching which was protected throughout this part of the dissection.? Then I directly came down over the fascia and identified the 2 heads of the FCU fascia and split this right in the middle and subsequently identified my ulnar nerve distally.? This was then completely released distally under direct visualization and loupe magnification.? Once the nerve was then identified I then subsequently tracked this proximally and released this through Noriega's ligament as well as complete decompression of the nerve proximally all the way past the intermuscular septum.? The nerve was completely released and decompressed both proximally and distally.? Ulnar nerve neurolysis performed and completed both proximally and distally with dissection scissors.? I then took the elbow through range of motion and there was no instability or subluxating of the ulnar nerve.? This completed?cubital tunnel release.? ?Next the wound bed was thoroughly irrigated.? Tourniquet was deflated.? Hemostasis was satisfactory at the?cubital tunnel release surgery site. I then inspected the carpal tunnel incision and this was found to have satisfactory hemostasis and all this was maintained through bipolar electrocautery.? At this point time I sequentially closed?cubital tunnel site with 3-0 Vicryl suture in a running horizontal mattress nylon stitch.? ? The carpal tunnel release surgery was then closed in standard interrupted mattress fashion.? Dressing was Xeroform 4 x 4's ABD Curlex soft roll and an Crispin wrap has a bulky soft dressing. Patient was then awakened from anesthesia and taken to PACU in stable condition. Disposition: Patient taken to PACU in stable condition recovering well.? Patient will receive appropriate discharge instructions as well as pain medication postoperatively.? We will follow-up with ortho in the office in 2 weeks.? Patient understands agrees with current plan.? All questions answered.? He understands if any questions or concerns and contact the office for follow-up appointment.
--- NOTE | 2025-01-16 08:13 | P.BOP_ITS ---
Date of Procedure: [January 16, 2025] Surgeon: [Dr. Billy DO] Final Inspector Shuttle(s): [Ronal Billy PA-C] Procedure(s) performed: [Right carpal tunnel release and cubital tunnel release] Findings of the procedure(s): [Right carpal tunnel syndrome and right cubital tunnel syndrome. No subluxation of ulnar nerve, so no ulnar nerve transposition performed. Procedure went well and as planned.] Estimated blood loss: [10 mL] Specimen(s) removed: [N/A] Post-operative diagnosis: [Right carpal tunnel syndrome right cubital tunnel syndrome]
[2025-01-16] MEDS: fentaNYL 50 mcg/mL INJ 2mL IVP (08:25)
[2025-01-16] MEDS: HYDROcodone-acetaminophen 5-325 mg Tablet 1 TAB PO (08:59)
--- NOTE | 2025-01-16 09:28 | ANE.PACU2 ---
Inpatient post-anesthesia follow up: Airway intact: Yes Vital signs: Temperature 97.6 F Pulse Rate 79 Respiratory Rate 18 Blood Pressure 136/78 Pulse Oximetry 95 Oxygen Delivery Me thod Room Air Oxygen Flow Rate Fraction of Inspir ed Oxygen Hydration adequate: Yes Nausea and vomiting: No Pain level: 2 Mental status: Baseline
== END 2025-01-16 09:28 | disposition home or self-care (01) ==
PROVIDERS: Anesthesiology; PCP Family Medicine; Visit Provider Student in an Organized Health Care Education/Training Program
PROC: (CPT 64721; principal; 2025-01-16 07:00)
PROC: (CPT 64718; 2025-01-16 07:00)
DX: G56.01 Carpal tunnel syndrome, right upper limb (principal); G56.21 Lesion of ulnar nerve, right upper limb; I25.10 Atherosclerotic heart disease of native coronary artery without angina pectoris; G40.909 Epilepsy, unspecified, not intractable, without status epilepticus; Z86.74 Personal history of sudden cardiac arrest; Z79.82 Long term (current) use of aspirin; K21.9 Gastro-esophageal reflux disease without esophagitis; E66.01 Morbid (severe) obesity due to excess calories; Z68.34 Body mass index [BMI] 34.0-34.9, adult; E78.5 Hyperlipidemia, unspecified
CPT/HCPCS: 64718; 64721; J0131; J0690; J1100; J1885; J2405; J2704; J2795; J3010; J7030; J9999

== ENCOUNTER → 2025-01-29 13:23 | Outpatient (BNVA) | payer MEDICARE, OTHER, SELFPAY | PROVIDERS: PCP Family Medicine; Visit Provider Physician Assistant | DX: Z98.890 Other specified postprocedural states (principal) | CPT/HCPCS: 99024 ==

== ENCOUNTER → 2025-03-05 13:33 | Outpatient (BNVA) | payer MEDICARE, OTHER, SELFPAY | PROVIDERS: PCP Family Medicine; Visit Provider Podiatrist Foot & Ankle Surgery | DX: I73.9 Peripheral vascular disease, unspecified (principal); L60.3 Nail dystrophy; G60.9 Hereditary and idiopathic neuropathy, unspecified | CPT/HCPCS: 11721 ==

== ENCOUNTER → 2025-03-12 08:29 | Outpatient (BNVA) | payer MEDICARE, OTHER, SELFPAY | PROVIDERS: PCP Family Medicine; Visit Provider Physician Assistant | DX: Z98.890 Other specified postprocedural states (principal) | CPT/HCPCS: 99024 ==

== ENCOUNTER → 2025-04-08 16:01 | Outpatient (BNVA) | payer MEDICARE, OTHER, SELFPAY | PROVIDERS: PCP Family Medicine; Visit Provider Internal Medicine Cardiovascular Disease | DX: I25.10 Atherosclerotic heart disease of native coronary artery without angina pectoris (principal); I10 Essential (primary) hypertension; E78.5 Hyperlipidemia, unspecified; F17.210 Nicotine dependence, cigarettes, uncomplicated | CPT/HCPCS: 99213 ==

== ENCOUNTER → 2025-05-20 11:27 | Outpatient (BNVA) | payer MEDICARE, OTHER, SELFPAY | PROVIDERS: PCP Family Medicine; Visit Provider Podiatrist Foot & Ankle Surgery | DX: E11.8 Type 2 diabetes mellitus with unspecified complications (principal); L60.3 Nail dystrophy; I73.9 Peripheral vascular disease, unspecified; G60.9 Hereditary and idiopathic neuropathy, unspecified | CPT/HCPCS: 11721 ==